=== PATIENT | male | born 1945 | race American Indian/Alaskan Native ===

== ENCOUNTER 2018-01-04 10:47 | Emergency (ER) | payer MEDICARE ==
--- NOTE | 2018-01-04 12:21 | Emergency Department Report ---
ED General Adult HPI - General Chief complaint: High BP Stated complaint: HIGH BLOOD PRESSURE Time Seen by Provider: 01/04/18 12:17 Source: EMS Mode of arrival: Stretcher Limitations: Physical Limitation - History of Present Illness Initial comments: She has a 72-year-old male that presents emergency room via EMS for high blood pressure. Patient states that his home health nurse came out and checked his blood pressure and it was high and called the ambulance. Patient denies chest pain and shortness of breath. Patient denies dizziness and headache. Patient denies any physical symptoms. Patient states he did not call the EMS ordered he wanted to come to the hospital. Patient is A& O 3. Patient is oriented to person, place, and situation. However patient is disoriented to time. Patient answers questions appropriately. MD Complaint: high blood pressure -: Sudden Improves with: none Worsens with: none Associated Symptoms: denies: confusion, chest pain, cough, diaphoresis, fever/ chills, headaches, loss of appetite, malaise, nausea/vomiting, rash, seizure, shortness of breath, syncope, weakness Treatments Prior to Arrival: none - Related Data Home Medications Medication Instructions Recorded Confirmed Last Taken Aspirin EC [Aspirin Enteric Coated 1 tab PO DAILY 01/04/18 01/04/18 Unknown TAB] AtorvaSTATin [Lipitor] 40 mg PO QHS 01/04/18 01/04/18 Unknown Cyanocobalamin (Vitamin B-12) 1,000 mcg PO DAILY 01/04/18 01/04/18 Unknown [Vitamin B-12] Docusate Sodium [Colace] 100 mg PO BID 01/04/18 01/04/18 Unknown Ferrous Sulfate [Iron] 325 mg PO DAILY 01/04/18 01/04/18 Unknown Metoprolol [Lopressor TAB] 50 mg PO BID 01/04/18 01/04/18 Unknown NIFEdipine [Nifedipine ER] 60 mg PO BID 01/04/18 01/04/18 Unknown Omeprazole 40 mg PO DAILY 01/04/18 01/04/18 Unknown Sertraline [Zoloft] 50 mg PO QHS 01/04/18 01/04/18 Unknown Tamsulosin [Flomax] 0.4 mg PO QDAY 01/04/18 01/04/18 Unknown hydrALAZINE [Apresoline] 25 mg PO TID 01/04/18 01/04/18 Unknown levETIRAcetam 750 mg PO BID 01/04/18 01/04/18 Unknown Previous Rx's Medication Instructions Recorded Last Taken Type cloNIDine [Catapres] 0.1 mg PO TID #20 tablet 01/04/18 Unknown Rx Allergies Allergy/AdvReac Type Severity Reaction Status Date / Time simvastatin Allergy Unknown Verified 01/04/18 13:15 ED Review of Systems ROS: Stated complaint: HIGH BLOOD PRESSURE Other details as noted in HPI Comment: All other systems reviewed and negative Constitutional: denies: chills, fever Eyes: denies: eye pain, eye discharge, vision change ENT: denies: ear pain, throat pain Respiratory: denies: cough, shortness of breath, wheezing Cardiovascular: denies: chest pain, palpitations Endocrine: no symptoms reported Gastrointestinal: denies: abdominal pain, nausea, diarrhea Genitourinary: denies: urgency, dysuria Musculoskeletal: denies: back pain, joint swelling, arthralgia Skin: denies: rash, lesions Neurological: denies: headache, weakness, paresthesias Psychiatric: denies: anxiety, depression Hematological/Lymphatic: denies: easy bleeding, easy bruising ED Past Medical Hx - Past Medical History Previous Medical History?: Yes Hx Hypertension: Yes Hx CVA: Yes (right side deficits) Hx Congestive Heart Failure: Yes Hx Renal Disease: Yes (no dialysis) Hx Seizures: Yes Hx Dementia: Yes 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 Colon cancer dx Apr 10, 2017 - Social History Smoking Status: Never Smoker Substance Use Type: None - Medications Home Medications: Home Medications Medication Instructions Recorded Confirmed Last Taken Type Aspirin EC [Aspirin Enteric Coated 1 tab PO DAILY 01/04/18 01/04/18 Unknown History TAB] AtorvaSTATin [Lipitor] 40 mg PO QHS 01/04/18 01/04/18 Unknown History Cyanocobalamin (Vitamin B-12) 1,000 mcg PO DAILY 01/04/18 01/04/18 Unknown History [Vitamin B-12] Docusate Sodium [Colace] 100 mg PO BID 01/04/18 01/04/18 Unknown History Ferrous Sulfate [Iron] 325 mg PO DAILY 01/04/18 01/04/18 Unknown History Metoprolol [Lopressor TAB] 50 mg PO BID 01/04/18 01/04/18 Unknown History NIFEdipine [Nifedipine ER] 60 mg PO BID 01/04/18 01/04/18 Unknown History Omeprazole 40 mg PO DAILY 01/04/18 01/04/18 Unknown History Sertraline [Zoloft] 50 mg PO QHS 01/04/18 01/04/18 Unknown History Tamsulosin [Flomax] 0.4 mg PO QDAY 01/04/18 01/04/18 Unknown History cloNIDine [Catapres] 0.1 mg PO TID #20 tablet 01/04/18 Unknown Rx hydrALAZINE [Apresoline] 25 mg PO TID 01/04/18 01/04/18 Unknown History levETIRAcetam 750 mg PO BID 01/04/18 01/04/18 Unknown History ED Physical Exam - General Limitations: Physical Limitation General appearance: alert, in no apparent distress - Head Head exam: Present: atraumatic, normocephalic - Eye Eye exam: Present: normal appearance - ENT ENT exam: Present: mucous membranes moist - Neck Neck exam: Present: normal inspection - Respiratory Respiratory exam: Present: normal lung sounds bilaterally. Absent: respiratory distress - Cardiovascular Cardiovascular Exam: Present: regular rate, normal rhythm. Absent: systolic murmur, diastolic murmur, rubs, gallop - GI/Abdominal GI/Abdominal exam: Present: soft, normal bowel sounds - Rectal Rectal exam: Present: deferred - Extremities Exam Extremities exam: Present: normal inspection - Back Exam Back exam: Present: normal inspection - Neurological Exam Neurological exam: Present: alert, oriented X3 - Psychiatric Psychiatric exam: Present: normal affect, normal mood - Skin Skin exam: Present: warm, dry, intact, normal color. Absent: rash ED Course Vital Signs 01/04/18 01/04/18 01/04/18 11:39 13:00 14:00 Temperature 98.2 F Pulse Rate 51 L 46 L 56 L Respiratory 12 12 13 Rate Blood Pressure 188/94 191/88 190/82 Blood Pressure 177/83 [Left] O2 Sat by Pulse 100 99 100 Oximetry 01/04/18 01/04/18 14:30 15:03 Temperature Pulse Rate 59 L 77 Respiratory 15 12 Rate Blood Pressure Blood Pressure 175/64 158/71 [Left] O2 Sat by Pulse 98 100 Oximetry - Reevaluation(s) Reevaluation #1: All results discussed with patient. Patient agrees with plan of care to be discharged home. Patient is stable for discharge. Patient states he could see his primary care this week. . 01/04/18 13:44 Reevaluation #2: Blood pressure monitor and improved on its own. Will send patient home to follow-up with his primary care. Patient is stable for discharge. Patient instructed to monitor his blood pressure at home. We'll have patient increase his clonidine to 0.1 mg 3 times a day from 0.05 mg 3 times a day 01/04/18 15:02 Reevaluation #3: Discussed case with patient and patient's daughter at bedside. Patient's baseline creatinine is 2.4... Discharge and medication instructions given to patient's daughter and patient. Patient is to return to personal correction and follow up with primary care. 01/04/18 15:30 ED Medical Decision Making - Lab Data Result diagrams: 01/04/18 12:25 01/04/18 12:25 - EKG Data -: EKG Interpreted by Me EKG shows normal: sinus rhythm, axis, intervals, QRS complexes, ST-T waves Rate: bradycardia - EKG Data Interpretation: no acute changes, LVH - Medical Decision Making Patient is 72-year-old male that presents emergency room with elevated blood pressure. Will increase patient's home clonidine and have patient follow up with his primary care. Patient is stable for discharge - Differential Diagnosis hbp. missed med. noncompliance. Critical care attestation.: If time is entered above; I have spent that time in minutes in the direct care of this critically ill patient, excluding procedure time. ED Disposition Clinical Impression: Hypertension Qualifiers: Hypertension type: essential hypertension Qualified Code(s): I10 - Essential ( primary) hypertension Chronic kidney disease Qualifiers: Chronic kidney disease stage: unspecified stage Qualified Code(s): N18.9 - Chronic kidney disease, unspecified Disposition: DC-01 TO HOME OR SELFCARE Is pt being admited?: No Does the pt Need Aspirin: No Condition: Stable Instructions: Hypertension (ED) Additional Instructions: Patient to follow up with primary care in 3-5 days. Patient to follow up with [employer] senior sergeant in 2-4 days. Patient to return to ER if condition worsens. Patient to rest. Patient to increase water. Patient to start a low salt diet. Prescriptions: cloNIDine [Catapres] 0.1 mg PO TID #20 tablet Referrals: PRIMARY CARE, [Primary Care Provider] - 3-5 Days Time of Disposition: 15:31
[2018-01-04 12:46] LABS: Hematocrit 39.9 % (35.5-45.6); Hemoglobin 13.1 gm/dl (11.8-15.2); Mean Corpuscular HGB Conc 33 % (32-34); Mean Corpuscular Hemoglobin 27 pg (28-32); Mean Corpuscular Volume 83 fl (84-94); Platelet Count 180 K/mm3 (140-440); Red Cell Distribution Width 18.9 % (13.2-15.2)
[2018-01-04 12:58] LABS: Albumin 3.7 g/dL (3.9-5); Calcium 8.7 mg/dL (8.4-10.2)
[2018-01-04] MEDS ORDERED: CATAPRES PO ONE (13:43)
[2018-01-04 15:03] VITALS: BP 158/71
== END 2018-01-04 16:08 | disposition home or self-care (01) ==
LOC: ED 10:47
DX: I12.9 Hypertensive chronic kidney disease with stage 1 through stage 4 chronic kidney disease, or unspecified chronic kidney disease (principal); N18.9 Chronic kidney disease, unspecified; F03.90 Unspecified dementia, unspecified severity, without behavioral disturbance, psychotic disturbance, mood disturbance, and anxiety; I50.9 Heart failure, unspecified; Z85.038 Personal history of other malignant neoplasm of large intestine; Z79.82 Long term (current) use of aspirin; Z86.73 Personal history of transient ischemic attack (TIA), and cerebral infarction without residual deficits; Z88.8 Allergy status to other drugs, medicaments and biological substances
CPT/HCPCS: 36415; 80053; 85027; 93005; 93010; 99284

== ENCOUNTER 2019-08-02 13:06 | Inpatient (IN) | payer MEDICARE ==
[2019-08-02] MEDS ORDERED: ACETAMINOPHEN 500 MG TAB PO ONE (14:26)
--- NOTE | 2019-08-02 14:29 | Emergency Department Report ---
HPI - General Chief Complaint: Altered Mental Status Time Seen by Provider: 08/02/19 14:15 - HPI HPI: Room 5 The patient is a 73-year-old male presenting with chief complaint of altered mental status. The patient is a history of dementia as a poor story in. Patient denies complaints including pain, shortness breath nausea vomiting or cough. I spoke with the patient's rn urgent care ([phone]) who states that the personal snf sent the patient to the ED secondary to drooling, facial drooping and decreased appetite over the past 4 days. The caregiver states this is all abnormal for him. 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 Colon cancer dx Apr 10, 2017 - Family History Family history: no significant - Social History Smoking Status: Never Smoker Substance Use Type: None - Medications Home Medications: Home Medications Medication Instructions Recorded Confirmed Last Taken Type Aspirin EC [Halfprin EC] 1 tab PO DAILY 01/04/18 01/04/18 Unknown History AtorvaSTATin [Lipitor] 40 mg PO QHS 01/04/18 01/04/18 Unknown History Cyanocobalamin (Vitamin B-12) 1,000 mcg PO DAILY 01/04/18 01/04/18 Unknown History [Vitamin B-12] Docusate Sodium [Colace] 100 mg PO BID 01/04/18 01/04/18 Unknown History Ferrous Sulfate [Iron] 325 mg PO DAILY 01/04/18 01/04/18 Unknown History Metoprolol [Lopressor TAB] 50 mg PO BID 01/04/18 01/04/18 Unknown History NIFEdipine [Nifedipine ER] 60 mg PO BID 01/04/18 01/04/18 Unknown History Omeprazole 40 mg PO DAILY 01/04/18 01/04/18 Unknown History Sertraline [Zoloft] 50 mg PO QHS 01/04/18 01/04/18 Unknown History Tamsulosin [Flomax] 0.4 mg PO QDAY 01/04/18 01/04/18 Unknown History cloNIDine [Catapres] 0.1 mg PO TID #20 tablet 01/04/18 Unknown Rx hydrALAZINE [Apresoline] 25 mg PO TID 01/04/18 01/04/18 Unknown History levETIRAcetam 750 mg PO BID 01/04/18 01/04/18 Unknown History ED Review of Systems ROS: Stated complaint: ALTERED MENTAL STATUS Other details as noted in HPI Constitutional: no symptoms reported Eyes: denies: eye pain ENT: denies: throat pain Respiratory: denies: shortness of breath Cardiovascular: denies: chest pain Endocrine: no symptoms reported Gastrointestinal: denies: abdominal pain Genitourinary: denies: dysuria Musculoskeletal: denies: back pain Neurological: denies: headache Physical Exam - Physical Exam Vital Signs: Vital Signs 08/02/19 14:05 Temperature 101.1 F H Pulse Rate 88 Respiratory 16 Rate Blood Pressure 137/85 O2 Sat by Pulse 95 Oximetry Physical Exam: GENERAL: The patient is well-developed well-nourished male sitting on stretcher not appearing to be in acute distress. [] HEENT: Normocephalic. Atraumatic. Extraocular motions are intact. Patient has moist mucous membranes. NECK: Supple. Trachea midline CHEST/LUNGS: Clear to auscultation. There is no respiratory distress noted. HEART/CARDIOVASCULAR: Regular. There is no tachycardia. There is no gallop rub or murmur. ABDOMEN: Abdomen is soft, nontender. Patient has normal bowel sounds. There is no abdominal distention. SKIN: There is no rash. There is no edema. There is no diaphoresis. NEURO: The patient is awake and alert. The patient is cooperative. The patient has residual right-sided weakness from previous CVA. Cranial nerves II through XII grossly intact except cranial nerve #11 on the right. The patient has normal speech MUSCULOSKELETAL: There is no evidence of acute injury. ED Course Vital Signs 08/02/19 14:05 Temperature 101.1 F H Pulse Rate 88 Respiratory 16 Rate Blood Pressure 137/85 O2 Sat by Pulse 95 Oximetry ED Medical Decision Making - Lab Data Result diagrams: 08/02/19 14:38 08/02/19 14:38 Laboratory Tests 08/02/19 08/02/19 08/02/19 14:38 14:38 14:38 WBC 9.7 RBC 6.21 H Hgb 17.6 H Hct 53.1 H MCV 86 MCH 28 MCHC 33 RDW 15.9 H Plt Count 223 Lymph % (Auto) 11.8 L [place] % (Auto) 7.9 H Eos % (Auto) 0.3 Baso % (Auto) 0.2 Lymph # 1.1 L [place] # 0.8 Eos # 0.0 Baso # 0.0 Seg Neutrophils % 79.8 H Seg Neutrophils # 7.7 PT 15.4 H INR 1.20 H APTT 30.2 Sodium 156 H Potassium 3.2 L Chloride 113.9 H Carbon Dioxide 19 L Anion Gap 26 BUN 54 H Creatinine 5.3 H Estimated GFR 13 BUN/Creatinine Ratio 10 Glucose 123 H Calcium 9.2 Troponin T 0.066 H Triglycerides 115 Cholesterol 129 LDL Cholesterol Direct 74 HDL Cholesterol 41 Cholesterol/HDL Ratio 3.14 Urine Color Urine Turbidity Urine pH Ur Specific [place] Urine Protein Urine Glucose (UA) Urine Ketones Urine Blood Urine Nitrite Urine Bilirubin Urine Urobilinogen Ur Leukocyte Esterase Urine WBC (Auto) Urine RBC (Auto) U Epithel Cells (Auto) Urine Bacteria (Auto) Urine Mucus 08/02/19 Unknown WBC RBC Hgb Hct MCV MCH MCHC RDW Plt Count Lymph % (Auto) [place] % (Auto) Eos % (Auto) Baso % (Auto) Lymph # [place] # Eos # Baso # Seg Neutrophils % Seg Neutrophils # PT INR APTT Sodium Potassium Chloride Carbon Dioxide Anion Gap BUN Creatinine Estimated GFR BUN/Creatinine Ratio Glucose Calcium Troponin T Triglycerides Cholesterol LDL Cholesterol Direct HDL Cholesterol Cholesterol/HDL Ratio Urine Color Yellow Urine Turbidity Clear Urine pH 5.0 Ur Specific [place] 1.014 Urine Protein 30 mg/dl Urine Glucose (UA) Neg Urine Ketones Neg Urine Blood Sm Urine Nitrite Neg Urine Bilirubin Neg Urine Urobilinogen < 2.0 Ur Leukocyte Esterase Neg Urine WBC (Auto) 2.0 Urine RBC (Auto) 1.0 U Epithel Cells (Auto) < 1.0 Urine Bacteria (Auto) 1+ Urine Mucus Few - EKG Data -: EKG Interpreted by [place] EKG shows normal: sinus rhythm Rate: normal - EKG Data When compared to previous EKG there are: previous EKG unavailable Interpretation: other (no ischemic changes seen) - Radiology Data Radiology results: report reviewed (CT head, chest x-ray), image reviewed (CT head, chest x-ray) interpreted by me: Chest x-ray-no focal infiltrates, no pneumothorax [facility] [address] [place] [address] Cat Scan Report Signed Patient: GWYN VERGARA MR#: [id number] : 1945 Acct:[id number] Age/Sex: 73 / M ADM Date: 08/02/19 Loc: ED Attending Dr: Ordering Physician: BRIANNA ASHTON MD Date of Service: 08/02/19 Procedure(s): CT head/brain wo con Accession Number(s): [id number] cc: BRIANNA ASHTON MD CT head/brain wo con INDICATION / CLINICAL INFORMATION: 73 years Male; altered mental status. TECHNIQUE: Routine CT head without contrast. All CT scans at this location are performed using CT dose reduction for ALARA by means of automated exposure control. COMPARISON: None. FINDINGS: BRAIN / INTRACRANIAL CONTENTS: There is encephalomalacia along the medial left frontal lobe and distribution of the left EEZ compatible with old infarct at. There is also old infarct adjacent to the right frontal horn. There is associated mild ex vacuo dilatation of the anterior lateral ventricles, greater on the left. There otherwise appears to be mild cerebral white matter disease most consistent with microvascular angiopathy at. There is no clear CT evidence of acute intracranial hemorrhage or significant mass effect. ORBITS: No significant abnormality of visualized orbits. SINUSES / MASTOIDS: There are small retention cysts within the visualized right maxillary sinus at. CRANIOCERVICAL JUNCTION: No significant abnormality. ADDITIONAL FINDINGS: There is a focus of calcification within the left parietal scalp near the vertex. Additionally, this will corticated can cavity of the adjacent left parietal calvarium which is nonaggressive in appearance given the fairly smooth margins at. Findings may reflect developmental anomaly with vascular component. IMPRESSION: 1. There is an old left EEZ infarct with encephalomalacia. 2. There is also an old infarct along the anterior right basal ganglia. There is no CT evidence of acute intracranial hemorrhage. Signer Name: Quincy rUena MD Signed: 08/02/2019 3:47 PM Workstation Name: [id number] Transcribed By: MR Dictated By: Quincy Urena MD Electronically Authenticated By: Quincy Urena MD Signed Date/Time: 08/02/191546 DD/ 154 TD/TT: [facility] [address] [place] [address] XRay Report Signed Patient: GWYN VERGARA MR#: [id number] : 1945 Acct:[id number] Age/Sex: 73 / M ADM Date: 08/02/19 Loc: ED Attending Dr: Ordering Physician: BRIANNA ASHTON MD Date of Service: 08/02/19 Procedure(s): XR chest 1V ap Accession Number(s): [id number] cc: BRIANNA ASHTON MD Fluoro Time In Minutes: CHEST 1 VIEW INDICATION / CLINICAL INFORMATION: fever. COMPARISON: None available. FINDINGS: SUPPORT DEVICES: None. HEART / MEDIASTINUM: No significant abnormality. LUNGS / PLEURA: No significant pulmonary or pleural abnormality.. No pneumothorax. ADDITIONAL FINDINGS: No significant additional findings. IMPRESSION: 1. No acute findings. Signer Name: Bennie Shrestha MD Signed: 08/02/2019 3:37 PM Workstation Name: [id number] Transcribed By: Dictated By: Bennie Shrestha MD Electronically Authenticated By: Bennie Shrestha MD Signed Date/Time: 08/02/191536 DD/ 36 TD/TT: - Differential Diagnosis UTI, pneumonia, CVA, AMS Critical care attestation.: If time is entered above; I have spent that time in minutes in the direct care of this critically ill patient, excluding procedure time. ED Disposition Clinical Impression: Altered mental status Disposition: DC-09 OP ADMIT IP TO THIS HOSP Is pt being admited?: Yes Does the pt Need Aspirin: Yes Condition: Fair Time of Disposition: 19:26 (hospitalist paged (Dr Monteiro))
[2019-08-02 15:12] LABS: Basophils % (Auto) 0.2 % (0.0-1.8); Eosinophils % (Auto) 0.3 % (0.0-4.3); Hematocrit 53.1 % (35.5-45.6); Hemoglobin 17.6 gm/dl (11.8-15.2); Lymphocytes # (Auto) 1.1 K/mm3 (1.2-5.4); Lymphocytes % (Auto) 11.8 % (13.4-35.0); Mean Corpuscular HGB Conc 33 % (32-34); Mean Corpuscular Volume 86 fl (84-94); Monocytes # (Auto) 0.8 K/mm3 (0.0-0.8); Monocytes % (Auto) 7.9 % (0.0-7.3); Platelet Count 223 K/mm3 (140-440); Red Blood Count 6.21 M/mm3 (3.65-5.03); Red Cell Distribution Width 15.9 % (13.2-15.2)
[2019-08-02 15:28] LABS: INR 1.2 (0.87-1.13)
[2019-08-02 15:29] LABS: Partial Thromboplastin Time 30.2 Sec. (24.2-36.6)
[2019-08-02 15:35] LABS: Calcium 9.2 mg/dL (8.4-10.2)
--- NOTE | 2019-08-02 15:42 | XRay Report ---
CHEST 1 VIEW INDICATION / CLINICAL INFORMATION: fever. COMPARISON: None available. FINDINGS: SUPPORT DEVICES: None. HEART / MEDIASTINUM: No significant abnormality. LUNGS / PLEURA: No significant pulmonary or pleural abnormality.. No pneumothorax. ADDITIONAL FINDINGS: No significant additional findings. IMPRESSION: 1. No acute findings. Signer Name: Bennie Shrestha MD Signed: 08/02/2019 3:37 PM Workstation Name: [id number]
--- NOTE | 2019-08-02 15:52 | Cat Scan Report ---
CT head/brain wo con INDICATION / CLINICAL INFORMATION: 73 years Male; altered mental status. TECHNIQUE: Routine CT head without contrast. All CT scans at this location are performed using CT dos e reduction for ALARA by means of automated exposure control. COMPARISON: None. FINDINGS: BRAIN / INTRACRANIAL CONTENTS: There is encephalomalacia along the medial left frontal lobe and distr ibution of the left EZE compatible with old infarct at. There is also old infarct adjacent to the rig ht frontal horn. There is associated mild ex vacuo dilatation of the anterior lateral ventricles, gre ater on the left. There otherwise appears to be mild cerebral white matter disease most consistent with microvascular a ngiopathy at. There is no clear CT evidence of acute intracranial hemorrhage or significant mass effe ct. ORBITS: No significant abnormality of visualized orbits. SINUSES / MASTOIDS: There are small retention cysts within the visualized right maxillary sinus at. CRANIOCERVICAL JUNCTION: No significant abnormality. ADDITIONAL FINDINGS: There is a focus of calcification within the left parietal scalp near the vertex . Additionally, this will corticated can cavity of the adjacent left parietal calvarium which is anil ggressive in appearance given the fairly smooth margins at. Findings may reflect developmental anomal y with vascular component. IMPRESSION: 1. There is an old left EZE infarct with encephalomalacia. 2. There is also an old infarct along the anterior right basal ganglia. There is no CT evidence of ac chepe intracranial hemorrhage. Signer Name: Quincy Urena MD Signed: 08/02/2019 3:47 PM Workstation Name: [id number]
[2019-08-02 16:15] LABS: Chol/HDL Ratio 3.14 %
[2019-08-02] MEDS ORDERED: SODIUM CHLORIDE 0.9% 1000 ML 1,000 ML IV ONE ×2 (16:30→22:02)
[2019-08-02 19:07] LABS: Bacteria,Urine 1+ /HPF (Negative); Bilirubin,Urine NEG (Negative); Blood,Urine SM (Negative); Color,Urine Yellow (Yellow); Mucus,Urine FEW /HPF; Urobilinogen,Urine < 2.0 mg/dL (<2.0)
[2019-08-02] MEDS ORDERED: ASPIRIN 325 MG TAB PO ONE (19:27)
[2019-08-02] MEDS ORDERED: PIPERACIL/TAZOBACTA 4.5/NS 100 4.5 GM/100 ML VIAL IV ONE (19:27)
--- NOTE | 2019-08-02 22:59 | History and Physical Report ---
History of Present Illness Date of admission: 08/02/19 22:00 History of present illness: 73-year-old male with a history of hypertension, dementia, colon cancer, chronic kidney disease, CVA, gout, hyperlipidemia, seizure, GERD, anxiety was sent from the personal correction for evaluation of decreased appetite, lethargy and altered mental status. The note on the chart state that he has been drooling for 2 days. The patient is unable to give a history. His labs significant for hypernatremia, kidney failure with unknown baseline renal function and abnormal cardiac enzymes. A review of system is unobtainable PAST MEDICAL HISTORY:hypertension, hyperlipidemia, dementia, colon cancer, chronic kidney disease, CVA, gout, seizure, GERD, anxiety PAST SURGICAL HISTORY: part of the colon removed SOCIAL HISTORY: no tobacco , no alcohol or drugs FAMILY HISTORY: hypertension Medications and Allergies Allergies Allergy/AdvReac Type Severity Reaction Status Date / Time simvastatin Allergy Unknown Verified 01/04/18 13:15 Home Medications Medication Instructions Recorded Confirmed Last Taken Type Aspirin EC [Halfprin EC] 1 tab PO DAILY 01/04/18 01/04/18 Unknown History AtorvaSTATin [Lipitor] 40 mg PO QHS 01/04/18 01/04/18 Unknown History Cyanocobalamin (Vitamin B-12) 1,000 mcg PO DAILY 01/04/18 01/04/18 Unknown History [Vitamin B-12] Docusate Sodium [Colace] 100 mg PO BID 01/04/18 01/04/18 Unknown History Ferrous Sulfate [Iron] 325 mg PO DAILY 01/04/18 01/04/18 Unknown History Metoprolol [Lopressor TAB] 50 mg PO BID 01/04/18 01/04/18 Unknown History NIFEdipine [Nifedipine ER] 60 mg PO BID 01/04/18 01/04/18 Unknown History Omeprazole 40 mg PO DAILY 01/04/18 01/04/18 Unknown History Sertraline [Zoloft] 50 mg PO QHS 01/04/18 01/04/18 Unknown History Tamsulosin [Flomax] 0.4 mg PO QDAY 01/04/18 01/04/18 Unknown History cloNIDine [Catapres] 0.1 mg PO TID #20 tablet 01/04/18 Unknown Rx hydrALAZINE [Apresoline] 25 mg PO TID 01/04/18 01/04/18 Unknown History levETIRAcetam 750 mg PO BID 01/04/18 01/04/18 Unknown History Active Meds: Active Medications Enoxaparin Sodium (Enoxaparin) 30 mg SUB-Q QDAY [facility] Dextrose/Sodium Chloride (D5/0.45ns) 1,000 mls @ 75 mls/hr IV DIRECT [facility] Exam - Physical Exam Narrative exam: Gen. appearance: Patient lying in bed, no apparent distress HEENT: Normocephalic, atraumatic, pupils equally round and reactive to light, extraocular movement intact, and no sclericterus,. No JVD or thyromegaly or nodule,neck supple, no carotid bruit ,mucous membranes dry, no exudate or erythema Heart: S1, S2, regular rate and rhythm Lungs: Clear to auscultation bilaterally, breathing comfortable Abdomen: Positive bowel sounds, nontender, nondistended, no organomegaly Extremity: No edema, cyanosis, clubbing Skin: No rash, nodules, warm, dry Neuro: Oriented 3, cranial nerves II-12 intact, speech is fluent - Constitutional Vitals: Temp Pulse Resp BP Pulse Ox 98.5 F 63 22 174/88 95 08/02/19 19:30 08/02/19 22:30 08/02/19 22:30 08/02/19 22:30 08/02/19 19:30 Results - Labs CBC & Chem 7: 08/02/19 14:38 08/02/19 14:38 Labs: Abnormal lab results 08/02/19 08/02/19 08/02/19 Range/Units 14:38 14:38 14:38 RBC 6.21 H (3.65-5.03) M/mm3 Hgb 17.6 H (11.8-15.2) gm/dl Hct 53.1 H (35.5-45.6) % RDW 15.9 H (13.2-15.2) % Lymph % (Auto) 11.8 L (13.4-35.0) % [place] % (Auto) 7.9 H (0.0-7.3) % Lymph # 1.1 L (1.2-5.4) K/mm3 Seg Neutrophils % 79.8 H (40.0-70.0) % PT 15.4 H (12.2-14.9) Sec. INR 1.20 H (0.87-1.13) Sodium 156 H (137-145) mmol/L Potassium 3.2 L (3.6-5.0) mmol/L Chloride 113.9 H (98-107) mmol/L Carbon Dioxide 19 L (22-30) mmol/L BUN 54 H (9-20) mg/dL Creatinine 5.3 H (0.8-1.5) mg/dL Glucose 123 H (75-100) mg/dL Troponin T 0.066 H (0.00-0.029) ng/mL - Imaging and Cardiology Chest x-ray: report reviewed CT Scan - head: report reviewed Assessment and Plan Assessment Hypernatremia/renal failure Start IV fluid, monitor potassium level Consult renal, check serial chemistry Abnormal cardiac enzymes Check cardiac enzymes, echo Hypokalemia, replete potassium Gout/seizure Start outpatient medications History of colon cancer stable DVT prophylaxis
[2019-08-02] MEDS ORDERED: POTASSIUM CHLORIDE ER 20 MEQ TAB PO ONE (23:01)
[2019-08-03] MEDS: D5W/0.45% NACL 1,000 ML IV SCH (00:17)
[2019-08-03] MEDS ORDERED: hydrALAZINE 20 MG/1 ML INJ IV ONE (01:39)
[2019-08-03 02:03] LABS: Creatine Kinase MB 8.6 ng/mL (0.0-4.0)
[2019-08-03] MEDS: hydrALAZINE 20 MG/1 ML INJ IV PRN ×2 (07:01→18:55)
[2019-08-03] MEDS: ENOXAPARIN 30 MG/0.3 ML INJ SUB-Q SCH (09:28)
[2019-08-03] MEDS ORDERED: NON-FORMULARY EACH (Levetiracetam 750 MG) PO SCH (10:00)
[2019-08-03] MEDS: FERROUS SULFATE 325 MG TAB PO SCH (11:02)
[2019-08-03] MEDS: DOCUSATE SODIUM 100 MG CAP PO SCH ×2 (11:02→22:42)
[2019-08-03] MEDS: CYANOCOBALAMIN (VIT B-12) 1000 MCG TAB PO SCH (11:03)
[2019-08-03] MEDS: METOPROLOL TARTRATE 50 MG TAB PO SCH ×2 (11:03→22:43)
--- NOTE | 2019-08-03 12:00 | Progress Note ---
Assessment and Plan Assessment and plan: --Hypernatremia; D5W, plenty of oral fluids, closely monitor electrolytes --Acute versus acute on chronic kidney disease; Closely monitor renal function avoid nephrotoxins Nephrology consultation requested --Elevated troponins; Nonspecific probably secondary to chronic kidney disease However patient has risk factors, consider cardiology evaluation if needed --Hyperkalemia; replenished per protocol and monitor levels --History of seizures; seizure precautions Antiseizure medications, supportive care --History of gout; Resume home medications --History of colon cancer; stable Patient follows up with his physicians upon discharge --DVT prophylaxis; on heparin Monitor closely and adjust the management as needed History Interval history: Patient seen and examined medical records reviewed Patient feels slightly better Denies chest pain or shortness of breath Vital signs reviewed Hospitalist Physical - Constitutional Vitals: Temp Pulse Resp BP Pulse Ox 97.9 F 74 18 185/94 95 08/03/19 08:44 08/03/19 08:44 08/03/19 08:44 08/03/19 11:03 08/03/19 08:44 General appearance: Present: no acute distress, well-nourished - EENT Eyes: Present: PERRL, EOM intact - Neck Neck: Present: supple, normal ROM - Respiratory Respiratory effort: normal Respiratory: bilateral: diminished, negative: rales, rhonchi, wheezing - Cardiovascular Rhythm: regular Heart Sounds: Present: S1 & S2 - Extremities Extremities: no ischemia, No edema - Abdominal General gastrointestinal: soft, non-tender, non-distended, normal bowel sounds - Integumentary Integumentary: Present: clear, warm - Psychiatric Psychiatric: appropriate mood/affect, cooperative - Neurologic Neurologic: moves all extremities Results - Labs CBC & Chem 7: 08/02/19 14:38 08/02/19 14:38 Labs: Laboratory Last Values WBC 9.7 K/mm3 (4.5-11.0) 08/02/19 14:38 RBC 6.21 M/mm3 (3.65-5.03) H 08/02/19 14:38 Hgb 17.6 gm/dl (11.8-15.2) H 08/02/19 14:38 Hct 53.1 % (35.5-45.6) H 08/02/19 14:38 MCV 86 fl (84-94) 08/02/19 14:38 MCH 28 pg (28-32) 08/02/19 14:38 MCHC 33 % (32-34) 08/02/19 14:38 RDW 15.9 % (13.2-15.2) H 08/02/19 14:38 Plt Count 223 K/mm3 (140-440) 08/02/19 14:38 Lymph % (Auto) 11.8 % (13.4-35.0) L 08/02/19 14:38 [place] % (Auto) 7.9 % (0.0-7.3) H 08/02/19 14:38 Eos % (Auto) 0.3 % (0.0-4.3) 08/02/19 14:38 Baso % (Auto) 0.2 % (0.0-1.8) 08/02/19 14:38 Lymph # 1.1 K/mm3 (1.2-5.4) L 08/02/19 14:38 [place] # 0.8 K/mm3 (0.0-0.8) 08/02/19 14:38 Eos # 0.0 K/mm3 (0.0-0.4) 08/02/19 14:38 Baso # 0.0 K/mm3 (0.0-0.1) 08/02/19 14:38 Seg Neutrophils % 79.8 % (40.0-70.0) H 08/02/19 14:38 Seg Neutrophils # 7.7 K/mm3 (1.8-7.7) 08/02/19 14:38 PT 15.4 Sec. (12.2-14.9) H 08/02/19 14:38 INR 1.20 (0.87-1.13) H 08/02/19 14:38 APTT 30.2 Sec. (24.2-36.6) 08/02/19 14:38 Sodium 156 mmol/L (137-145) H 08/02/19 14:38 Potassium 3.2 mmol/L (3.6-5.0) L 08/02/19 14:38 Chloride 113.9 mmol/L (98-107) H 08/02/19 14:38 Carbon Dioxide 19 mmol/L (22-30) L 08/02/19 14:38 Anion Gap 26 mmol/L 08/02/19 14:38 BUN 54 mg/dL (9-20) H 08/02/19 14:38 Creatinine 5.3 mg/dL (0.8-1.5) H 08/02/19 14:38 Estimated GFR 13 ml/min 08/02/19 14:38 BUN/Creatinine Ratio 10 % 08/02/19 14:38 Glucose 123 mg/dL (75-100) H 08/02/19 14:38 Calcium 9.2 mg/dL (8.4-10.2) 08/02/19 14:38 Total Creatine Kinase 551 units/L (55-170) H 08/03/19 01:20 CK-MB (CK-2) 8.6 ng/mL (0.0-4.0) H 08/03/19 01:20 CK-MB (CK-2) Rel Index 1.5 (0-4) 08/03/19 01:20 Troponin T 0.052 ng/mL (0.00-0.029) H D 08/03/19 01:20 Triglycerides 115 mg/dL (2-149) 08/02/19 14:38 Cholesterol 129 mg/dL (50-199) 08/02/19 14:38 LDL Cholesterol Direct 74 mg/dL (50-130) 08/02/19 14:38 HDL Cholesterol 41 mg/dL (40-59) 08/02/19 14:38 Cholesterol/HDL Ratio 3.14 % 08/02/19 14:38 Urine Color Yellow (Yellow) 08/02/19 Unknown Urine Turbidity Clear (Clear) 08/02/19 Unknown Urine pH 5.0 (5.0-7.0) 08/02/19 Unknown Ur Specific [place] 1.014 (1.003-1.030) 08/02/19 Unknown Urine Protein 30 mg/dl mg/dL (Negative) 08/02/19 Unknown Urine Glucose (UA) Neg mg/dL (Negative) 08/02/19 Unknown Urine Ketones Neg mg/dL (Negative) 08/02/19 Unknown Urine Blood Sm (Negative) 08/02/19 Unknown Urine Nitrite Neg (Negative) 08/02/19 Unknown Urine Bilirubin Neg (Negative) 08/02/19 Unknown Urine Urobilinogen < 2.0 mg/dL (<2.0) 08/02/19 Unknown Ur Leukocyte Esterase Neg (Negative) 08/02/19 Unknown Urine WBC (Auto) 2.0 /HPF (0.0-6.0) 08/02/19 Unknown Urine RBC (Auto) 1.0 /HPF (0.0-6.0) 08/02/19 Unknown U Epithel Cells (Auto) < 1.0 /HPF (0-13.0) 08/02/19 Unknown Urine Bacteria (Auto) 1+ /HPF (Negative) 08/02/19 Unknown Urine Mucus Few /HPF 08/02/19 Unknown Active Medications - Current Medications Current Medications: Generic Name Dose Route Start Last Admin Trade Name Freq PRN Reason Stop Dose Admin Aspirin 81 mg 08/03/19 11:00 Halfprin Ec PO DAILY [facility] Clonidine HCl 0.1 mg 08/03/19 14:00 Catapres PO TID [facility] Cyanocobalamin 1,000 mcg 08/03/19 11:00 08/03/19 11:03 Vitamin B-12 PO 1,000 mcg DAILY [facility] Administration Docusate Sodium 100 mg 08/03/19 10:00 08/03/19 11:02 Colace PO 100 mg BID [facility] Administration Enoxaparin Sodium 30 mg 08/03/19 10:00 08/03/19 09:28 Enoxaparin SUB-Q 30 mg QDAY [facility] Administration Ferrous Sulfate 325 mg 08/03/19 11:00 08/03/19 11:02 Feosol PO 325 mg DAILY [facility] Administration Hydralazine HCl 5 mg 08/03/19 01:07 08/03/19 07:01 Apresoline IV 5 mg Q6H PRN Administration Hypertension Hydralazine HCl 25 mg 08/03/19 14:00 Apresoline PO TID [facility] Dextrose/Sodium Chloride 1,000 mls @ 75 mls/hr 08/02/19 23:00 08/03/19 00:17 D5/0.45ns IV 75 mls/hr DIRECT [facility] Administration Levetiracetam 750 mg 08/03/19 11:20 Keppra PO BID [facility] Metoprolol Tartrate 50 mg 08/03/19 10:00 08/03/19 11:03 Metoprolol PO 50 mg BID [facility] Administration Nifedipine 60 mg 08/03/19 10:00 Procardia Xl PO BID [facility] Sertraline HCl 50 mg 08/03/19 22:00 Zoloft PO QHS [facility] Tamsulosin HCl 0.4 mg 08/03/19 10:00 Flomax PO QDAY [facility]
--- NOTE | 2019-08-03 13:26 | Consultation ---
History of Present Illness Consult date: 08/03/19 Requesting physician: RADHA DOWNING Consult reason: abnormal cardiac enzymes History of present illness: Pt is 73 y.o. AA male, skilled care facility resident with past medical history of HTN, past CVA with residual right-sided weakness, renal insufficiency, seizure disorder, colon cancer, and dementia. He is previously unknown to our practice. Pt is confused upon evaluation, and thus HPI is primarily obtained per chart. was sent from the personal custodial for evaluation of decreased appetite, lethargy and altered mental status. The note on the chart state that he has been drooling for 2 days. Upon evaluation, pt is oriented to self and denies any complaints. Cardiology has been consulted for minimal troponin elevation. Past History Past Medical History: cancer (colon), GERD, hypertension, hyperlipidemia, renal failure, seizures, stroke Medications and Allergies Allergies Allergy/AdvReac Type Severity Reaction Status Date / Time simvastatin Allergy Unknown Verified 01/04/18 13:15 Home Medications Medication Instructions Recorded Confirmed Last Taken Type Aspirin EC [Halfprin EC] 1 tab PO DAILY 01/04/18 01/04/18 Unknown History AtorvaSTATin [Lipitor] 40 mg PO QHS 01/04/18 01/04/18 Unknown History Cyanocobalamin (Vitamin B-12) 1,000 mcg PO DAILY 01/04/18 01/04/18 Unknown History [Vitamin B-12] Docusate Sodium [Colace] 100 mg PO BID 01/04/18 01/04/18 Unknown History Ferrous Sulfate [Iron] 325 mg PO DAILY 01/04/18 01/04/18 Unknown History Metoprolol [Lopressor TAB] 50 mg PO BID 01/04/18 01/04/18 Unknown History NIFEdipine [Nifedipine ER] 60 mg PO BID 01/04/18 01/04/18 Unknown History Omeprazole 40 mg PO DAILY 01/04/18 01/04/18 Unknown History Sertraline [Zoloft] 50 mg PO QHS 01/04/18 01/04/18 Unknown History Tamsulosin [Flomax] 0.4 mg PO QDAY 01/04/18 01/04/18 Unknown History cloNIDine [Catapres] 0.1 mg PO TID #20 tablet 01/04/18 Unknown Rx hydrALAZINE [Apresoline] 25 mg PO TID 01/04/18 01/04/18 Unknown History levETIRAcetam 750 mg PO BID 01/04/18 01/04/18 Unknown History Active Meds: Active Medications Aspirin (Halfprin Ec) 81 mg PO DAILY [facility] Clonidine HCl (Catapres) 0.1 mg PO TID [facility] Cyanocobalamin (Vitamin B-12) 1,000 mcg PO DAILY [facility] Last Admin: 08/03/19 11:03 Dose: 1,000 mcg Documented by: Docusate Sodium (Colace) 100 mg PO BID [facility] Last Admin: 08/03/19 11:02 Dose: 100 mg Documented by: Enoxaparin Sodium (Enoxaparin) 30 mg SUB-Q QDAY [facility] Last Admin: 08/03/19 09:28 Dose: 30 mg Documented by: Ferrous Sulfate (Feosol) 325 mg PO DAILY [facility] Last Admin: 08/03/19 11:02 Dose: 325 mg Documented by: Hydralazine HCl (Apresoline) 5 mg IV Q6H PRN PRN Reason: Hypertension Last Admin: 08/03/19 07:01 Dose: 5 mg Documented by: Hydralazine HCl (Apresoline) 25 mg PO TID [facility] Dextrose/Sodium Chloride (D5/0.45ns) 1,000 mls @ 75 mls/hr IV DIRECT [facility] Last Admin: 08/03/19 00:17 Dose: 75 mls/hr Documented by: Levetiracetam (Keppra) 750 mg PO BID [facility] Metoprolol Tartrate (Metoprolol) 50 mg PO BID [facility] Last Admin: 08/03/19 11:03 Dose: 50 mg Documented by: Nifedipine (Procardia Xl) 60 mg PO BID [facility] Sertraline HCl (Zoloft) 50 mg PO QHS [facility] Tamsulosin HCl (Flomax) 0.4 mg PO QDAY [facility] Review of Systems ROS unobtainable: due to mental status All systems: negative (Pt denies any complaints) Physical Examination Vital Signs Temp Pulse Resp BP Pulse Ox 101.1 F H 88 16 137/85 95 08/02/19 14:05 08/02/19 14:05 08/02/19 14:05 08/02/19 14:05 08/02/19 14:05 General appearance: no acute distress HEENT: Positive: PERRL, Normocephaly Neck: Positive: neck supple, trachea midline Cardiac: Positive: Reg Rate and Rhythm, S1/S2 Lungs: Positive: clear to auscultation Neuro: Positive: Grossly Intact Abdomen: Positive: Soft. Negative: Tender Skin: Negative: Rash Musculoskeletal: No Pain Extremities: Absent: edema Results 08/02/19 14:38 08/02/19 14:38 Cardiac Enzymes 08/03/19 Range/Units 01:20 CK-MB (CK-2) 8.6 H (0.0-4.0) ng/mL Coagulation 08/02/19 Range/Units 14:38 PT 15.4 H (12.2-14.9) Sec. INR 1.20 H (0.87-1.13) APTT 30.2 (24.2-36.6) Sec. Lipids 08/02/19 Range/Units 14:38 Triglycerides 115 (2-149) mg/dL Cholesterol 129 (50-199) mg/dL HDL Cholesterol 41 (40-59) mg/dL Cholesterol/HDL Ratio 3.14 % CBC 08/02/19 Range/Units 14:38 WBC 9.7 (4.5-11.0) K/mm3 RBC 6.21 H (3.65-5.03) M/mm3 Hgb 17.6 H (11.8-15.2) gm/dl Hct 53.1 H (35.5-45.6) % Plt Count 223 (140-440) K/mm3 Lymph # 1.1 L (1.2-5.4) K/mm3 [place] # 0.8 (0.0-0.8) K/mm3 Eos # 0.0 (0.0-0.4) K/mm3 Baso # 0.0 (0.0-0.1) K/mm3 Comprehensive Metabolic Panel 08/02/19 Range/Units 14:38 Sodium 156 H (137-145) mmol/L Potassium 3.2 L (3.6-5.0) mmol/L Chloride 113.9 H (98-107) mmol/L Carbon Dioxide 19 L (22-30) mmol/L BUN 54 H (9-20) mg/dL Creatinine 5.3 H (0.8-1.5) mg/dL Glucose 123 H (75-100) mg/dL Calcium 9.2 (8.4-10.2) mg/dL - Imaging and Cardiology Echo: pending EKG: report reviewed, image reviewed EKG interpretations - Telemetry EKG Rhythm: Sinus Rhythm - EKG Sinus rhythms and dysrhythmias: sinus rhythm Chamber hypertrophy or enlargement: left ventricular hypertro Repolarization changes or abnormalities: repolarization abn secondary to ventricular hypertrophy Assessment and Plan Pt presented for evaluation of altered mental status. Head CT with no acute f indings. Pt denies any cardiac complaints. ECG with NSR and no acute ischemic changes. Minimal troponin elevation appears non-specific at this time. Continue to trend [place] and follow-up ECG in AM. Will obtain echo and optimize anti- hypertensive regimen. Can consider stress test once medically stabilized. Nephrology consultation pending. The patient has been seen in conjunction with Dr. Olson, who agrees with the assessment and plan of care. - Patient Problems (1) Altered mental status Current Visit: Yes Status: Acute (2) Elevated troponin Current Visit: Yes Status: Acute (3) Hypertension Current Visit: Yes Status: Chronic (4) Renal insufficiency Current Visit: Yes Status: Acute (5) History of CVA (cerebrovascular accident) Current Visit: Yes Status: Chronic (6) History of colon cancer Current Visit: Yes Status: Chronic (7) History of seizure Current Visit: Yes Status: Chronic (8) Dementia Current Visit: Yes Status: Chronic
[2019-08-03] MEDS: ASPIRIN EC 81 MG TAB PO SCH (14:28)
[2019-08-03] MEDS: cloNIDine 0.1 MG TAB PO SCH ×2 (14:28→20:41)
[2019-08-03] MEDS: NIFEdipine XL 60 MG TAB PO SCH ×2 (14:28→22:45)
[2019-08-03] MEDS: levETIRAcetam 500 MG TAB PO SCH ×2 (14:29→22:42)
[2019-08-03] MEDS: TAMSULOSIN 0.4 MG CAP PO SCH (14:29)
[2019-08-03] MEDS: hydrALAZINE 25 MG TAB PO SCH ×2 (14:29→20:41)
[2019-08-03 15:51] LABS: Calcium 8.9 mg/dL (8.4-10.2)
--- NOTE | 2019-08-03 18:05 | Consultation ---
History of Present Illness - Reason for Consult Consult date: 08/03/19 acute renal failure - History of Present Illness 73-year-old male with a history of hypertension, dementia, colon cancer, chronic kidney disease, CVA, gout, hyperlipidemia, seizure, GERD, anxiety who presents with concerns of lethargy and altered mental status. Patient is unable to provide any history at this time. History and information gathered from chart review Past History Past Medical History: cancer (colon), GERD, hypertension, hyperlipidemia, renal failure, seizures, stroke Medications and Allergies Allergies Allergy/AdvReac Type Severity Reaction Status Date / Time simvastatin Allergy Unknown Verified 01/04/18 13:15 Home Medications Medication Instructions Recorded Confirmed Last Taken Type Aspirin EC [Halfprin EC] 1 tab PO DAILY 01/04/18 01/04/18 Unknown History AtorvaSTATin [Lipitor] 40 mg PO QHS 01/04/18 01/04/18 Unknown History Cyanocobalamin (Vitamin B-12) 1,000 mcg PO DAILY 01/04/18 01/04/18 Unknown History [Vitamin B-12] Docusate Sodium [Colace] 100 mg PO BID 01/04/18 01/04/18 Unknown History Ferrous Sulfate [Iron] 325 mg PO DAILY 01/04/18 01/04/18 Unknown History Metoprolol [Lopressor TAB] 50 mg PO BID 01/04/18 01/04/18 Unknown History NIFEdipine [Nifedipine ER] 60 mg PO BID 01/04/18 01/04/18 Unknown History Omeprazole 40 mg PO DAILY 01/04/18 01/04/18 Unknown History Sertraline [Zoloft] 50 mg PO QHS 01/04/18 01/04/18 Unknown History Tamsulosin [Flomax] 0.4 mg PO QDAY 01/04/18 01/04/18 Unknown History cloNIDine [Catapres] 0.1 mg PO TID #20 tablet 01/04/18 Unknown Rx hydrALAZINE [Apresoline] 25 mg PO TID 01/04/18 01/04/18 Unknown History levETIRAcetam 750 mg PO BID 01/04/18 01/04/18 Unknown History Active Meds: Active Medications Aspirin (Halfprin Ec) 81 mg PO DAILY [facility] Last Admin: 08/03/19 14:28 Dose: 81 mg Documented by: Clonidine HCl (Catapres) 0.1 mg PO TID [facility] Last Admin: 08/03/19 14:28 Dose: 0.1 mg Documented by: Cyanocobalamin (Vitamin B-12) 1,000 mcg PO DAILY [facility] Last Admin: 08/03/19 11:03 Dose: 1,000 mcg Documented by: Docusate Sodium (Colace) 100 mg PO BID [facility] Last Admin: 08/03/19 11:02 Dose: 100 mg Documented by: Enoxaparin Sodium (Enoxaparin) 30 mg SUB-Q QDAY [facility] Last Admin: 08/03/19 09:28 Dose: 30 mg Documented by: Ferrous Sulfate (Feosol) 325 mg PO DAILY [facility] Last Admin: 08/03/19 11:02 Dose: 325 mg Documented by: Hydralazine HCl (Apresoline) 5 mg IV Q6H PRN PRN Reason: Hypertension Last Admin: 08/03/19 07:01 Dose: 5 mg Documented by: Hydralazine HCl (Apresoline) 25 mg PO TID [facility] Last Admin: 08/03/19 14:29 Dose: 25 mg Documented by: Dextrose/Sodium Chloride (D5/0.45ns) 1,000 mls @ 75 mls/hr IV DIRECT [facility] Last Admin: 08/03/19 00:17 Dose: 75 mls/hr Documented by: Levetiracetam (Keppra) 750 mg PO BID [facility] Last Admin: 08/03/19 14:29 Dose: 750 mg Documented by: Metoprolol Tartrate (Metoprolol) 50 mg PO BID [facility] Last Admin: 08/03/19 11:03 Dose: 50 mg Documented by: Nifedipine (Procardia Xl) 60 mg PO BID [facility] Last Admin: 08/03/19 14:28 Dose: 60 mg Documented by: Sertraline HCl (Zoloft) 50 mg PO QHS [facility] Tamsulosin HCl (Flomax) 0.4 mg PO QDAY [facility] Last Admin: 08/03/19 14:29 Dose: 0.4 mg Documented by: Review of Systems ROS unobtainable: due to mental status Exam - Vital Signs Vital signs: Vital Signs Temp Pulse Resp BP Pulse Ox 101.1 F H 88 16 137/85 95 08/02/19 14:05 08/02/19 14:05 08/02/19 14:05 08/02/19 14:05 08/02/19 14:05 - General Appearance General appearance: cachectic, moderate distress, chronically ill, frail EENT: mucous membranes moist Neck: Present: neck supple Respiratory: Clear to Ascultation Heart: regular, S1S2 Gastrointestinal: Present: normoactive bowel sounds Integumentary: no rash, warm and dry Neurologic: confused Psychiatric: agitated Results - Lab Results 08/02/19 14:38 08/03/19 14:47 Most recent lab results Calcium 8.9 mg/dL (8.4-10.2) 08/03/19 14:47 Assessment and Plan # Hypernatremia: likely related to decreased oral intake and elevated water deficit. Sodium has improved with fluids (156->150) - continue current IVF (D5W) - Oral fluids as tolerated - daily renal labs # Acute kidney injury: baseline creatinine likely around 2.2. Creatinine has improved from admission 5.3->4.2 with IV fluids. suspect [place] I will related to prerenal injury - continue supportive measures - daily labs - No indications for dialysis - Given improvement with fluids, will hold off on further workup - avoid nephrotoxins - replete electrolytes when necessary # Elevated troponins: appreciate cardiology input # history of seizures Thank you for this interesting consult. We will continue to follow and provide recommendations for renal needs
[2019-08-03] MEDS: SERTRALINE 50 MG TAB PO SCH (22:42)
[2019-08-04] MEDS: ENOXAPARIN 30 MG/0.3 ML INJ SUB-Q SCH (10:16)
[2019-08-04] MEDS: D5W/0.45% NACL 1,000 ML IV SCH (10:16)
[2019-08-04] MEDS: NIFEdipine XL 60 MG TAB PO SCH ×2 (10:16→22:56)
[2019-08-04] MEDS: TAMSULOSIN 0.4 MG CAP PO SCH (10:16)
[2019-08-04] MEDS: levETIRAcetam 500 MG TAB PO SCH ×2 (10:17→22:56)
[2019-08-04] MEDS: FERROUS SULFATE 325 MG TAB PO SCH (10:17)
[2019-08-04] MEDS: DOCUSATE SODIUM 100 MG CAP PO SCH ×2 (10:17→22:58)
[2019-08-04] MEDS: CYANOCOBALAMIN (VIT B-12) 1000 MCG TAB PO SCH (10:17)
[2019-08-04] MEDS: ASPIRIN EC 81 MG TAB PO SCH (10:17)
[2019-08-04] MEDS: METOPROLOL TARTRATE 50 MG TAB PO SCH ×2 (10:18→22:58)
[2019-08-04] MEDS: hydrALAZINE 25 MG TAB PO SCH ×3 (10:18→20:45)
[2019-08-04] MEDS: cloNIDine 0.1 MG TAB PO SCH ×3 (10:18→20:47)
[2019-08-04] MEDS ORDERED: POTASSIUM CHLORIDE ER 20 MEQ TAB PO ONE ×2 (13:07→16:42)
--- NOTE | 2019-08-04 13:09 | Progress Note ---
Assessment and Plan Assessment and plan: --Acute versus acute on chronic kidney disease; Closely monitor renal function avoid nephrotoxins Nephrology consultation requested --Hypokalemia; replace with KCl Monitor electrolytes --Hypernatremia; D5W, plenty of oral fluids, closely monitor electrolytes --Elevated troponins; Nonspecific probably secondary to chronic kidney disease However patient has risk factors, consider cardiology evaluation if needed --History of seizures; seizure precautions Antiseizure medications, supportive care --History of gout; Resume home medications --History of colon cancer; stable Patient follows up with his physicians upon discharge --DVT prophylaxis; on heparin Monitor closely and adjust the management as needed Plan of care reviewed with the patient and his nurse History Interval history: Patient seen and examined medical records reviewed Patient feels slightly better Mild chest pain, no shortness of breath Vital signs noted Hospitalist Physical - Constitutional Vitals: Temp Pulse Resp BP Pulse Ox 98.2 F 53 L 18 129/64 96 08/04/19 12:57 08/04/19 12:57 08/04/19 12:57 08/04/19 12:57 08/04/19 12:57 General appearance: Present: no acute distress, well-nourished - EENT Eyes: Present: PERRL, EOM intact - Neck Neck: Present: supple, normal ROM - Respiratory Respiratory effort: normal Respiratory: bilateral: diminished, negative: rales, rhonchi, wheezing - Cardiovascular Rhythm: regular Heart Sounds: Present: S1 & S2 - Extremities Extremities: no ischemia, No edema - Abdominal General gastrointestinal: soft, non-tender, non-distended, normal bowel sounds - Integumentary Integumentary: Present: clear, warm - Psychiatric Psychiatric: appropriate mood/affect, cooperative - Neurologic Neurologic: moves all extremities Results - Labs CBC & Chem 7: 08/02/19 14:38 08/03/19 14:47 Labs: Laboratory Last Values WBC 9.7 K/mm3 (4.5-11.0) 08/02/19 14:38 RBC 6.21 M/mm3 (3.65-5.03) H 08/02/19 14:38 Hgb 17.6 gm/dl (11.8-15.2) H 08/02/19 14:38 Hct 53.1 % (35.5-45.6) H 08/02/19 14:38 MCV 86 fl (84-94) 08/02/19 14:38 MCH 28 pg (28-32) 08/02/19 14:38 MCHC 33 % (32-34) 08/02/19 14:38 RDW 15.9 % (13.2-15.2) H 08/02/19 14:38 Plt Count 223 K/mm3 (140-440) 08/02/19 14:38 Lymph % (Auto) 11.8 % (13.4-35.0) L 08/02/19 14:38 Mcdonough % (Auto) 7.9 % (0.0-7.3) H 08/02/19 14:38 Eos % (Auto) 0.3 % (0.0-4.3) 08/02/19 14:38 Baso % (Auto) 0.2 % (0.0-1.8) 08/02/19 14:38 Lymph # 1.1 K/mm3 (1.2-5.4) L 08/02/19 14:38 Mcdonough # 0.8 K/mm3 (0.0-0.8) 08/02/19 14:38 Eos # 0.0 K/mm3 (0.0-0.4) 08/02/19 14:38 Baso # 0.0 K/mm3 (0.0-0.1) 08/02/19 14:38 Seg Neutrophils % 79.8 % (40.0-70.0) H 08/02/19 14:38 Seg Neutrophils # 7.7 K/mm3 (1.8-7.7) 08/02/19 14:38 PT 15.4 Sec. (12.2-14.9) H 08/02/19 14:38 INR 1.20 (0.87-1.13) H 08/02/19 14:38 APTT 30.2 Sec. (24.2-36.6) 08/02/19 14:38 Sodium 150 mmol/L (137-145) H 08/03/19 14:47 Potassium 3.3 mmol/L (3.6-5.0) L 08/03/19 14:47 Chloride 112.1 mmol/L (98-107) H 08/03/19 14:47 Carbon Dioxide 22 mmol/L (22-30) 08/03/19 14:47 Anion Gap 19 mmol/L 08/03/19 14:47 BUN 46 mg/dL (9-20) H 08/03/19 14:47 Creatinine 4.2 mg/dL (0.8-1.5) H 08/03/19 14:47 Estimated GFR 17 ml/min 08/03/19 14:47 BUN/Creatinine Ratio 11 % 08/03/19 14:47 Glucose 87 mg/dL (75-100) 08/03/19 14:47 Calcium 8.9 mg/dL (8.4-10.2) 08/03/19 14:47 Total Creatine Kinase 547 units/L (55-170) H 08/03/19 14:47 CK-MB (CK-2) 11.0 ng/mL (0.0-4.0) H 08/03/19 14:47 CK-MB (CK-2) Rel Index 2.0 (0-4) 08/03/19 14:47 Troponin T 0.032 ng/mL (0.00-0.029) H 08/04/19 05:55 Triglycerides 115 mg/dL (2-149) 08/02/19 14:38 Cholesterol 129 mg/dL (50-199) 08/02/19 14:38 LDL Cholesterol Direct 74 mg/dL (50-130) 08/02/19 14:38 HDL Cholesterol 41 mg/dL (40-59) 08/02/19 14:38 Cholesterol/HDL Ratio 3.14 % 08/02/19 14:38 Urine Color Yellow (Yellow) 08/02/19 Unknown Urine Turbidity Clear (Clear) 08/02/19 Unknown Urine pH 5.0 (5.0-7.0) 08/02/19 Unknown Ur Specific [place] 1.014 (1.003-1.030) 08/02/19 Unknown Urine Protein 30 mg/dl mg/dL (Negative) 08/02/19 Unknown Urine Glucose (UA) Neg mg/dL (Negative) 08/02/19 Unknown Urine Ketones Neg mg/dL (Negative) 08/02/19 Unknown Urine Blood Sm (Negative) 08/02/19 Unknown Urine Nitrite Neg (Negative) 08/02/19 Unknown Urine Bilirubin Neg (Negative) 08/02/19 Unknown Urine Urobilinogen < 2.0 mg/dL (<2.0) 08/02/19 Unknown Ur Leukocyte Esterase Neg (Negative) 08/02/19 Unknown Urine WBC (Auto) 2.0 /HPF (0.0-6.0) 08/02/19 Unknown Urine RBC (Auto) 1.0 /HPF (0.0-6.0) 08/02/19 Unknown U Epithel Cells (Auto) < 1.0 /HPF (0-13.0) 08/02/19 Unknown Urine Bacteria (Auto) 1+ /HPF (Negative) 08/02/19 Unknown Urine Mucus Few /HPF 08/02/19 Unknown Active Medications - Current Medications Current Medications: Generic Name Dose Route Start Last Admin Trade Name Freq PRN Reason Stop Dose Admin Aspirin 81 mg 08/03/19 11:00 08/04/19 10:17 Halfprin Ec PO 81 mg DAILY STAS Administration Clonidine HCl 0.1 mg 08/03/19 14:00 08/04/19 10:18 Catapres PO 0.1 mg TID STAS Administration Cyanocobalamin 1,000 mcg 08/03/19 11:00 08/04/19 10:17 Vitamin B-12 PO 1,000 mcg DAILY STAS Administration Docusate Sodium 100 mg 08/03/19 10:00 08/04/19 10:17 Colace PO 100 mg BID STAS Administration Enoxaparin Sodium 30 mg 08/03/19 10:00 08/04/19 10:16 Enoxaparin SUB-Q 30 mg QDAY STAS Administration Ferrous Sulfate 325 mg 08/03/19 11:00 08/04/19 10:17 Feosol PO 325 mg DAILY STAS Administration Hydralazine HCl 5 mg 08/03/19 01:07 08/03/19 18:55 Apresoline IV 5 mg Q6H PRN Administration Hypertension Hydralazine HCl 25 mg 08/03/19 14:00 08/04/19 10:18 Apresoline PO 25 mg TID STAS Administration Dextrose/Sodium Chloride 1,000 mls @ 75 mls/hr 08/02/19 23:00 08/04/19 10:16 D5/0.45ns IV 75 mls/hr DIRECT STAS Administration Levetiracetam 750 mg 08/03/19 11:20 08/04/19 10:17 Keppra PO 750 mg BID STAS Administration Metoprolol Tartrate 50 mg 08/03/19 10:00 08/04/19 10:18 Metoprolol PO 50 mg BID STAS Administration Nifedipine 60 mg 08/03/19 10:00 08/04/19 10:16 Procardia Xl PO 60 mg BID STAS Administration Sertraline HCl 50 mg 08/03/19 22:00 08/03/19 22:42 Zoloft PO 50 mg QHS STAS Administration Tamsulosin HCl 0.4 mg 08/03/19 10:00 08/04/19 10:16 Flomax PO 0.4 mg QDAY STAS Administration
--- NOTE | 2019-08-04 14:02 | Progress Note ---
Assessment and Plan Patient without chest pain.Troponin's are coming down,and also considering T wave changes,will get ischemic evaluation,will get iv Lexiscan MPI. Subjective Date of service: 08/04/19 Interval history: Patient is comfortable,denies any chest pain or sob,no previous cardiac w/u done.Troponin's are lower,EKG showed S.R with T wave changes in anterior leads. Objective Vital Signs Temp Pulse Pulse Resp BP BP Pulse Ox 08/04/19 12:57 98.2 F 53 L 18 129/64 96 08/04/19 10:18 64 158/76 08/04/19 10:00 62 08/04/19 08:22 97.8 F 55 L 18 158/76 95 08/04/19 03:57 98.3 F 69 18 149/77 95 08/04/19 03:41 75 08/03/19 23:37 98.0 F 57 L 18 159/77 97 08/03/19 22:43 65 145/79 08/03/19 20:48 61 08/03/19 20:41 66 179/64 08/03/19 20:02 98.1 F 66 18 179/84 95 08/03/19 20:01 71 08/03/19 18:55 174/81 08/03/19 18:54 69 174/81 08/03/19 18:51 174/81 08/03/19 14:33 99 F 60 18 98 08/03/19 14:29 188/95 08/03/19 14:28 60 188/95 08/03/19 14:27 54 L 98 08/03/19 14:25 188/95 - Physical Examination HEENT: Positive: PERRL, Normocephaly Neck: Positive: neck supple Cardiac: Positive: Regular Rhythm Lungs: Positive: Normal Exam Neuro: Positive: Grossly Intact Abdomen: Positive: Soft. Negative: Tender Skin: Negative: Rash Musculoskeletal: No Pain Extremities: Absent: edema - Labs and Meds Cardiac Enzymes 08/03/19 Range/Units 14:47 CK-MB (CK-2) 11.0 H (0.0-4.0) ng/mL Comprehensive Metabolic Panel 08/03/19 Range/Units 14:47 Sodium 150 H (137-145) mmol/L Potassium 3.3 L (3.6-5.0) mmol/L Chloride 112.1 H (98-107) mmol/L Carbon Dioxide 22 (22-30) mmol/L BUN 46 H (9-20) mg/dL Creatinine 4.2 H (0.8-1.5) mg/dL Glucose 87 (75-100) mg/dL Calcium 8.9 (8.4-10.2) mg/dL - Imaging and Cardiology EKG: report reviewed, image reviewed Echo: pending - EKG Sinus rhythms and dysrhythmias: sinus rhythm Chamber hypertrophy or enlargement: left ventricular hypertro Repolarization changes or abnormalities: repolarization abn secondary to ventricular hypertrophy
--- NOTE | 2019-08-04 20:25 | Progress Note ---
Assessment and Plan Assessment: * Acute kidney iinjury secondary to prerenal azotemia on stage III CKD --SCr 2.2mg/dL in 2018 * Elevated troponin * Hypernatremia * Hypokalemia Plan: * Continue IVF - SCr improved, Na trending down * Cardiac work up in progress * Elevated Hb noted - ?secondary to volume contraction vs other. Will obtain renal ultrasound * Replete lytes prn * Dose medications for renal function * Avoid potential nephrotoxins * AM labs Subjective Date of service: 08/04/19 Interval history: Patient has no complaints today. Denies SOB. Tolerating po. Objective - Vital Signs Vital signs: Vital Signs - 12hr 08/04/19 08/04/19 08/04/19 10:00 10:18 12:57 Temperature 98.2 F Pulse Rate 64 53 L Pulse Rate [ 62 Apical] Respiratory 18 Rate Blood Pressure 158/76 129/64 O2 Sat by Pulse 96 Oximetry 08/04/19 08/04/19 08/04/19 14:00 15:00 16:50 Temperature 97.9 F Pulse Rate 62 58 L 53 L Pulse Rate [ Apical] Respiratory 18 Rate Blood Pressure 134/78 129/70 O2 Sat by Pulse 95 Oximetry - General Appearance General appearance: well-developed, well-nourished EENT: ATNC Respiratory: Present: Clear to Ascultation Cardiology: regular, S1S2 Gastrointestinal: normal, no tenderness, no distended Integumentary: no rash, warm and dry Neurologic: no focal deficit, alert and oriented x3 Psychiatric: cooperative - Lab 08/02/19 14:38 08/03/19 14:47 Most recent lab results Calcium 8.9 mg/dL (8.4-10.2) 08/03/19 14:47 Medications & Allergies - Medications Allergies/Adverse Reactions: Allergies simvastatin Allergy (Verified 01/04/18 13:15) Unknown Home Medications: Home Medications Medication Instructions Recorded Confirmed Last Taken Type Aspirin EC [Halfprin EC] 1 tab PO DAILY 01/04/18 01/04/18 Unknown History AtorvaSTATin [Lipitor] 40 mg PO QHS 01/04/18 01/04/18 Unknown History Cyanocobalamin (Vitamin B-12) 1,000 mcg PO DAILY 01/04/18 01/04/18 Unknown History [Vitamin B-12] Docusate Sodium [Colace] 100 mg PO BID 01/04/18 01/04/18 Unknown History Ferrous Sulfate [Iron] 325 mg PO DAILY 01/04/18 01/04/18 Unknown History Metoprolol [Lopressor TAB] 50 mg PO BID 01/04/18 01/04/18 Unknown History NIFEdipine [Nifedipine ER] 60 mg PO BID 01/04/18 01/04/18 Unknown History Omeprazole 40 mg PO DAILY 01/04/18 01/04/18 Unknown History Sertraline [Zoloft] 50 mg PO QHS 01/04/18 01/04/18 Unknown History Tamsulosin [Flomax] 0.4 mg PO QDAY 01/04/18 01/04/18 Unknown History cloNIDine [Catapres] 0.1 mg PO TID #20 tablet 01/04/18 Unknown Rx hydrALAZINE [Apresoline] 25 mg PO TID 01/04/18 01/04/18 Unknown History levETIRAcetam 750 mg PO BID 01/04/18 01/04/18 Unknown History Active Medications: Generic Name Dose Route Start Last Admin Trade Name Freq PRN Reason Stop Dose Admin Aspirin 81 mg 08/03/19 11:00 08/04/19 10:17 Halfprin Ec PO 81 mg DAILY STAS Administration Clonidine HCl 0.1 mg 08/03/19 14:00 08/04/19 15:00 Catapres PO 0.1 mg TID STAS Administration Cyanocobalamin 1,000 mcg 08/03/19 11:00 08/04/19 10:17 Vitamin B-12 PO 1,000 mcg DAILY STAS Administration Docusate Sodium 100 mg 08/03/19 10:00 08/04/19 10:17 Colace PO 100 mg BID STAS Administration Enoxaparin Sodium 30 mg 08/03/19 10:00 08/04/19 10:16 Enoxaparin SUB-Q 30 mg QDAY STAS Administration Ferrous Sulfate 325 mg 08/03/19 11:00 08/04/19 10:17 Feosol PO 325 mg DAILY STAS Administration Hydralazine HCl 5 mg 08/03/19 01:07 08/03/19 18:55 Apresoline IV 5 mg Q6H PRN Administration Hypertension Hydralazine HCl 25 mg 08/03/19 14:00 08/04/19 15:00 Apresoline PO 25 mg TID STAS Administration Dextrose/Sodium Chloride 1,000 mls @ 75 mls/hr 08/02/19 23:00 08/04/19 10:16 D5/0.45ns IV 75 mls/hr DIRECT STAS Administration Levetiracetam 750 mg 08/03/19 11:20 08/04/19 10:17 Keppra PO 750 mg BID STAS Administration Metoprolol Tartrate 50 mg 08/03/19 10:00 08/04/19 10:18 Metoprolol PO 50 mg BID STAS Administration Nifedipine 60 mg 08/03/19 10:00 08/04/19 10:16 Procardia Xl PO 60 mg BID STAS Administration Sertraline HCl 50 mg 08/03/19 22:00 08/03/19 22:42 Zoloft PO 50 mg QHS STAS Administration Tamsulosin HCl 0.4 mg 08/03/19 10:00 08/04/19 10:16 Flomax PO 0.4 mg QDAY STAS Administration
[2019-08-04] MEDS: SERTRALINE 50 MG TAB PO SCH (22:57)
[2019-08-05] MEDS: D5W/0.45% NACL 1,000 ML IV SCH ×2 (00:20→18:08)
[2019-08-05] MEDS ORDERED: REGADENOSON 0.4 MG/5 ML INJ IV ONE (07:31)
[2019-08-05] MEDS: cloNIDine 0.1 MG TAB PO SCH ×3 (08:00→22:29)
--- NOTE | 2019-08-05 10:42 | Treadmill Report ---
LEXISCAN STRESS REPORT REASON FOR STUDY: Elevated troponin level. STRESS TEST PROTOCOL: The patient received 0.4 mg of Lexiscan intravenously over 10 seconds. Tc-99m Tetrofosmin was subsequently injected. Baseline ECG, normal sinus rhythm with left ventricular hypertrophy and nonspecific ST segment and T-wave abnormalities. Lexiscan ECG, no ischemic changes. No chest pain. No arrhythmias. IMPRESSION: Electrocardiographically negative stress test. Nuclear imaging report to follow. JOB# [id number] AGO/NTS
--- NOTE | 2019-08-05 12:46 | Progress Note ---
Assessment and Plan Echo reviewed - EF 55-60%, mild dilation of aortic root and ascending aorta, trace MR, trace TR, severe LVH, impaired relaxation, due to appearance of LV myocardium infiltrative disease cannot be excluded. Can consider cardiac MRI as OP for further evaluation. S/p lexiscan MPI stress test this AM which was negative for ischemia, EF 34%. Currently stable cardiac status. Nothing further to add from cardiac perspective at this time. Will sign off. Recommend pt follow up in our office with Dr. Olson within 1-2 weeks of discharge ([phone]). The patient has been seen in conjunction with Dr. Olson who agrees with the assessment and plan of care. - Patient Problems (1) Altered mental status Current Visit: Yes Status: Acute (2) Elevated troponin Current Visit: Yes Status: Acute (3) Hypertension Current Visit: Yes Status: Chronic (4) Renal insufficiency Current Visit: Yes Status: Acute (5) History of CVA (cerebrovascular accident) Current Visit: Yes Status: Chronic (6) History of colon cancer Current Visit: Yes Status: Chronic (7) History of seizure Current Visit: Yes Status: Chronic (8) Dementia Current Visit: Yes Status: Chronic Subjective Date of service: 08/05/19 Principal diagnosis: AMS; elevated trop Interval history: pt for stress test, no current complaints. in SR on tele with SB HR 40s noted overnight. Objective Last Vital Signs Temp 99.3 F 08/05/19 13:23 Pulse 78 08/05/19 13:29 Resp 18 08/05/19 13:23 BP 148/67 08/05/19 13:29 Pulse Ox 100 08/05/19 13:23 - Physical Examination General: No Apparent Distress HEENT: Positive: PERRL, Normocephaly Neck: Positive: neck supple Cardiac: Positive: Reg Rate and Rhythm, S1/S2 Lungs: Positive: Decreased Breath Sounds Neuro: Positive: Grossly Intact Abdomen: Positive: Soft. Negative: Tender Skin: Negative: Rash Musculoskeletal: No Pain Extremities: Absent: edema - Imaging and Cardiology EKG: report reviewed, image reviewed Echo: pending - EKG Sinus rhythms and dysrhythmias: sinus rhythm Chamber hypertrophy or enlargement: left ventricular hypertro Repolarization changes or abnormalities: repolarization abn secondary to ventricular hypertrophy
[2019-08-05] MEDS: FERROUS SULFATE 325 MG TAB PO SCH (13:25)
[2019-08-05] MEDS: ENOXAPARIN 30 MG/0.3 ML INJ SUB-Q SCH (13:25)
[2019-08-05] MEDS: hydrALAZINE 25 MG TAB PO SCH ×3 (13:26→22:29)
[2019-08-05] MEDS: NIFEdipine XL 60 MG TAB PO SCH ×2 (13:26→22:29)
[2019-08-05] MEDS: DOCUSATE SODIUM 100 MG CAP PO SCH ×2 (13:26→22:12)
[2019-08-05] MEDS: CYANOCOBALAMIN (VIT B-12) 1000 MCG TAB PO SCH (13:27)
[2019-08-05] MEDS: levETIRAcetam 500 MG TAB PO SCH ×2 (13:28→22:29)
[2019-08-05] MEDS: METOPROLOL TARTRATE 50 MG TAB PO SCH ×2 (13:28→22:29)
--- NOTE | 2019-08-05 13:29 | Treadmill Report ---
THALLIUM REPORT REASON FOR STUDY: Elevated troponin level. IMAGING PROTOCOL: The patient received 10 mCi of Tc-99m Tetrofosmin for rest imaging, and 28 mCi of technetium Tetrofosmin for stress imaging. Imaging for all procedures was completed 30-90 minutes following the initial injection of Technetium 99m Tetrofosmin. SPECT imaging in the 180 degree arc was performed in the right anterior oblique projection. Computerized reconstruction of the images was performed for analysis. NUCLEAR IMAGING RESULTS: Normal left ventricular cavity size with no change from stress to rest. Distribution of radionuclide within the left ventricle revealed a medium size area of photo-induction involving the inferior and inferoapical region. The degree of photon reduction is moderate. Rest imaging does not show any significant improvement in this defect. In addition, there is a small area of photon reduction involving the inferolateral wall. The degree of photon reduction is moderate. Rest imaging does not show any significant improvement in this defect. Gated SPECT imaging revealed moderately severe global left ventricular systolic dysfunction with severe inferior and septal hypokinesis. The calculated left ventricular ejection fraction is 34%. IMPRESSION: Medium size fixed inferior and inferoapical defect. Small fixed inferolateral defect. Moderately severe global left ventricular systolic dysfunction with severe inferior and septal hypokinesis. EF 34%. These findings suggest prior infarction involving the right coronary and left circumflex coronary artery territories. In addition, a cardiomyopathic process may be present in this patient. No evidence of significant stress-induced ischemia. [facility]# [id number] JUANA/RIKKI JOHN
--- NOTE | 2019-08-05 14:07 | Ultrasound Report ---
ULTRASOUND RENAL INDICATION: NYLA. COMPARISON: No relevant prior imaging study available. FINDINGS: RIGHT KIDNEY: Size: 9.2 cm. Echogenicity: Increased. Cortical thickness: There is cortical thinning. Cortex measures approximatel y 8 mm. Stones: None. Hydronephrosis: None. Cyst or mass: None. LEFT KIDNEY: Size: 10.1 cm. Echogenicity: Increased. Cortical thickness: Mild cortical thinning. Stones: None. Hydronephrosis: None. Cyst or mass: None. Urinary Bladder: No significant abnormality. Free Fluid: None. Additional Findings: Cholelithiasis. There is sludge in the gallbladder is well.. IMPRESSION 1. Kidneys are increased in echogenicity characteristic of medical renal disease. There is mild corti donald thinning right greater than left. There is no hydronephrosis.. 2. There is cholelithiasis. There is also sludge in the lumen of the gallbladder. Signer Name: Bennie Shrestha MD Signed: 08/05/2019 2:02 PM Workstation Name: [id number]
--- NOTE | 2019-08-05 14:52 | Discharge Summary ---
Providers - Providers Date of Admission: 08/02/19 22:00 Date of discharge: 08/05/19 Attending physician: RADHA DOWNING 08/03/19 01:07 Consult to Physician [CONS] Routine Comment: Consulting Provider: MIRA SHEIKH Physician Instructions: Reason For Exam: hypernatremia, rf 08/03/19 09:11 Physical Therapy Evaluation and Treat [CONS] Routine Comment: Reason For Exam: evaluate and treat 08/03/19 12:05 Consult to Physician [CONS] Routine Comment: Consulting Provider: DELANEY MCHUGH Physician Instructions: Reason For Exam: elevated cardiac enzymes Primary care physician: [facility] Hospitalization Condition: Fair Procedures: S/p lexiscan MPI stress test negative for ischemia, EF 34%. Hospital course: --Acute versus acute on chronic kidney disease; Closely monitor renal function avoid nephrotoxins Nephrology consultation requested --Hypokalemia; replace with KCl Monitor electrolytes --Hypernatremia; D5W, plenty of oral fluids, closely monitor electrolytes --Elevated troponins; Nonspecific probably secondary to chronic kidney disease However patient has risk factors, consider cardiology evaluation if needed --History of seizures; seizure precautions Antiseizure medications, supportive care --History of gout; Resume home medications --History of colon cancer; stable Patient follows up with his physicians upon discharge --DVT prophylaxis; on heparin Monitor closely and adjust the management as needed Plan of care reviewed with the patient and his nurse Disposition: DC-30 STILL A PATIENT Exam - Constitutional Vitals: Temp Pulse Resp BP Pulse Ox 99.3 F 78 18 148/67 100 08/05/19 13:23 08/05/19 13:29 08/05/19 13:23 08/05/19 13:29 08/05/19 13:23 Plan Additional Instructions: F/U Dr. Mchugh within 1-2 weeks of discharge ([phone]). Outpatient cardiac MRI Follow up with: CHING VARGAS [Primary Care Provider] - 3-5 Days
--- NOTE | 2019-08-05 15:39 | Progress Note ---
Assessment and Plan - Patient Problems (1) Acute kidney injury superimposed on chronic kidney disease Current Visit: Yes Status: Acute Plan to address problem: baseline creatinine 2.2 an 2018 creatinine on admission was 5 no volume overload on exam continue intravenous fluids avoid nephrotoxic medications (2) Hypertension Current Visit: Yes Status: Chronic Plan to address problem: hypertension, controlled. Continue current medications (3) Acute hypernatremia Current Visit: Yes Status: Acute Plan to address problem: Acute hypERnatremia Continue hypotonic solutions INCREASE HALF-NORMAL SALINE TO 1 25 CC AN HOUR (4) Hypokalemia Current Visit: Yes Status: Acute Plan to address problem: HYPOKALEMIA RECHECK POTASSIUM LEVELS Subjective Principal diagnosis: AMS; elevated trop Interval history: 73-year-old gentleman with chronic kidney disease, hypertension admitted with acute kidney injury patient with improving renal functione denies any lower extremity edema. Denies any shortness of breath Objective - Vital Signs Vital signs: Vital Signs - 12hr 08/05/19 08/05/19 08/05/19 06:22 09:17 09:55 Temperature 98.2 F 99.3 F Pulse Rate 58 L 90 Respiratory 16 18 Rate Blood Pressure 170/74 158/77 163/75 O2 Sat by Pulse 96 96 Oximetry 08/05/19 08/05/19 08/05/19 10:28 10:29 10:30 Temperature Pulse Rate Respiratory Rate Blood Pressure 139/79 130/72 140/62 O2 Sat by Pulse Oximetry 08/05/19 08/05/19 08/05/19 10:31 10:32 13:23 Temperature 99.3 F Pulse Rate 77 Respiratory 18 Rate Blood Pressure 136/70 148/67 181/77 O2 Sat by Pulse 100 Oximetry 08/05/19 08/05/19 08/05/19 13:27 13:28 13:29 Temperature Pulse Rate 78 78 78 Respiratory Rate Blood Pressure 148/67 148/67 148/67 O2 Sat by Pulse Oximetry - General Appearance General appearance: well-developed, well-nourished EENT: ATNC, PERRL Neck: no JVD Respiratory: Present: Clear to Ascultation Cardiology: regular, S1S2 Gastrointestinal: normal, normoactive bowel sounds Integumentary: no rash Neurologic: no focal deficit, alert and oriented x3, CN 3-12 intact Psychiatric: mood/affect appropriate - Lab 08/02/19 14:38 08/03/19 14:47 Most recent lab results Calcium 8.9 mg/dL (8.4-10.2) 08/03/19 14:47 - Imaging Chest x-ray: other (i reviewed chest x-ray without edema) Medications & Allergies - Medications Allergies/Adverse Reactions: Allergies simvastatin Allergy (Verified 01/04/18 13:15) Unknown Home Medications: Home Medications Medication Instructions Recorded Confirmed Last Taken Type Aspirin EC [Halfprin EC] 1 tab PO DAILY 01/04/18 01/04/18 Unknown History AtorvaSTATin [Lipitor] 40 mg PO QHS 01/04/18 01/04/18 Unknown History Cyanocobalamin (Vitamin B-12) 1,000 mcg PO DAILY 01/04/18 01/04/18 Unknown History [Vitamin B-12] Docusate Sodium [Colace] 100 mg PO BID 01/04/18 01/04/18 Unknown History Ferrous Sulfate [Iron] 325 mg PO DAILY 01/04/18 01/04/18 Unknown History Metoprolol [Lopressor TAB] 50 mg PO BID 01/04/18 01/04/18 Unknown History NIFEdipine [Nifedipine ER] 60 mg PO BID 01/04/18 01/04/18 Unknown History Omeprazole 40 mg PO DAILY 01/04/18 01/04/18 Unknown History Sertraline [Zoloft] 50 mg PO QHS 01/04/18 01/04/18 Unknown History Tamsulosin [Flomax] 0.4 mg PO QDAY 01/04/18 01/04/18 Unknown History cloNIDine [Catapres] 0.1 mg PO TID #20 tablet 01/04/18 Unknown Rx hydrALAZINE [Apresoline] 25 mg PO TID 01/04/18 01/04/18 Unknown History levETIRAcetam 750 mg PO BID 01/04/18 01/04/18 Unknown History Active Medications: Generic Name Dose Route Start Last Admin Trade Name Freq PRN Reason Stop Dose Admin Aspirin 81 mg 08/03/19 11:00 08/04/19 10:17 Halfprin Ec PO 81 mg DAILY STAS Administration Clonidine HCl 0.1 mg 08/03/19 14:00 08/05/19 13:29 Catapres PO 0.1 mg TID STAS Administration Cyanocobalamin 1,000 mcg 08/03/19 11:00 08/05/19 13:27 Vitamin B-12 PO 1,000 mcg DAILY STAS Administration Docusate Sodium 100 mg 08/03/19 10:00 08/05/19 13:26 Colace PO 100 mg BID STAS Administration Enoxaparin Sodium 30 mg 08/03/19 10:00 08/05/19 13:25 Enoxaparin SUB-Q 30 mg QDAY STAS Administration Ferrous Sulfate 325 mg 08/03/19 11:00 08/05/19 13:25 Feosol PO 325 mg DAILY STAS Administration Hydralazine HCl 5 mg 08/03/19 01:07 08/03/19 18:55 Apresoline IV 5 mg Q6H PRN Administration Hypertension Hydralazine HCl 25 mg 08/03/19 14:00 08/05/19 13:27 Apresoline PO 25 mg TID STAS Administration Dextrose/Sodium Chloride 1,000 mls @ 125 mls/hr 08/05/19 09:00 D5/0.45ns IV DIRECT STAS Levetiracetam 750 mg 08/03/19 11:20 08/05/19 13:28 Keppra PO 750 mg BID STAS Administration Metoprolol Tartrate 50 mg 08/03/19 10:00 08/05/19 13:28 Metoprolol PO 50 mg BID STAS Administration Nifedipine 60 mg 08/03/19 10:00 08/05/19 13:26 Procardia Xl PO 60 mg BID STAS Administration Sertraline HCl 50 mg 08/03/19 22:00 08/04/19 22:57 Zoloft PO 50 mg QHS STAS Administration Tamsulosin HCl 0.4 mg 08/03/19 10:00 08/04/19 10:16 Flomax PO 0.4 mg QDAY STAS Administration
[2019-08-05] MEDS: ASPIRIN EC 81 MG TAB PO SCH (18:26)
[2019-08-05] MEDS: TAMSULOSIN 0.4 MG CAP PO SCH (18:26)
--- NOTE | 2019-08-05 19:17 | Progress Note ---
Assessment and Plan Assessment and plan: --NSTEMI: Probably type II Stress test negative for ischemia The current management --Acute versus acute on chronic kidney disease; Worsening renal function Nephrology following --Hypokalemia; replace with KCl Monitor electrolytes --Hypernatremia; D5W, plenty of oral fluids, closely monitor electrolytes --History of seizures; seizure precautions Antiseizure medications, supportive care --History of gout; Resume home medications --History of colon cancer; stable Patient follows up with his physicians upon discharge --DVT prophylaxis; on heparin Monitor closely and adjust the management as needed Plan of care reviewed with the patient and his nurse History Interval history: The patient underwent stress test which was negative for ischemia Cleared by cardiology for discharge However patient has acute on chronic kidney disease With with a minimal improvement of renal function Discussed with the public health officer, want to monitor renal function next 1 or 2 days and discharge home when creatinine is reasonable level . Patient has no new complaints Vital signs reviewed Hospitalist Physical - Constitutional Vitals: Temp Pulse Resp BP Pulse Ox 99.8 F H 62 18 140/69 95 08/05/19 16:20 08/05/19 16:20 08/05/19 16:20 08/05/19 16:20 08/05/19 16:20 General appearance: Present: no acute distress, well-nourished - EENT Eyes: Present: PERRL, EOM intact - Neck Neck: Present: supple, normal ROM - Respiratory Respiratory effort: normal Respiratory: bilateral: diminished, negative: rales, rhonchi, wheezing - Cardiovascular Rhythm: regular Heart Sounds: Present: S1 & S2 - Extremities Extremities: no ischemia, No edema - Abdominal General gastrointestinal: soft, non-tender, non-distended, normal bowel sounds - Integumentary Integumentary: Present: clear, warm - Psychiatric Psychiatric: appropriate mood/affect, cooperative - Neurologic Neurologic: CNII-XII intact, moves all extremities Results - Labs CBC & Chem 7: 08/02/19 14:38 08/03/19 14:47 Labs: Laboratory Last Values WBC 9.7 K/mm3 (4.5-11.0) 08/02/19 14:38 RBC 6.21 M/mm3 (3.65-5.03) H 08/02/19 14:38 Hgb 17.6 gm/dl (11.8-15.2) H 08/02/19 14:38 Hct 53.1 % (35.5-45.6) H 08/02/19 14:38 MCV 86 fl (84-94) 08/02/19 14:38 MCH 28 pg (28-32) 08/02/19 14:38 MCHC 33 % (32-34) 08/02/19 14:38 RDW 15.9 % (13.2-15.2) H 08/02/19 14:38 Plt Count 223 K/mm3 (140-440) 08/02/19 14:38 Lymph % (Auto) 11.8 % (13.4-35.0) L 08/02/19 14:38 [place] % (Auto) 7.9 % (0.0-7.3) H 08/02/19 14:38 Eos % (Auto) 0.3 % (0.0-4.3) 08/02/19 14:38 Baso % (Auto) 0.2 % (0.0-1.8) 08/02/19 14:38 Lymph # 1.1 K/mm3 (1.2-5.4) L 08/02/19 14:38 [place] # 0.8 K/mm3 (0.0-0.8) 08/02/19 14:38 Eos # 0.0 K/mm3 (0.0-0.4) 08/02/19 14:38 Baso # 0.0 K/mm3 (0.0-0.1) 08/02/19 14:38 Seg Neutrophils % 79.8 % (40.0-70.0) H 08/02/19 14:38 Seg Neutrophils # 7.7 K/mm3 (1.8-7.7) 08/02/19 14:38 PT 15.4 Sec. (12.2-14.9) H 08/02/19 14:38 INR 1.20 (0.87-1.13) H 08/02/19 14:38 APTT 30.2 Sec. (24.2-36.6) 08/02/19 14:38 Sodium 150 mmol/L (137-145) H 08/03/19 14:47 Potassium 3.3 mmol/L (3.6-5.0) L 08/03/19 14:47 Chloride 112.1 mmol/L (98-107) H 08/03/19 14:47 Carbon Dioxide 22 mmol/L (22-30) 08/03/19 14:47 Anion Gap 19 mmol/L 08/03/19 14:47 BUN 46 mg/dL (9-20) H 08/03/19 14:47 Creatinine 4.2 mg/dL (0.8-1.5) H 08/03/19 14:47 Estimated GFR 17 ml/min 08/03/19 14:47 BUN/Creatinine Ratio 11 % 08/03/19 14:47 Glucose 87 mg/dL (75-100) 08/03/19 14:47 Calcium 8.9 mg/dL (8.4-10.2) 08/03/19 14:47 Total Creatine Kinase 547 units/L (55-170) H 08/03/19 14:47 CK-MB (CK-2) 11.0 ng/mL (0.0-4.0) H 08/03/19 14:47 CK-MB (CK-2) Rel Index 2.0 (0-4) 08/03/19 14:47 Troponin T 0.032 ng/mL (0.00-0.029) H 08/04/19 05:55 Triglycerides 115 mg/dL (2-149) 08/02/19 14:38 Cholesterol 129 mg/dL (50-199) 08/02/19 14:38 LDL Cholesterol Direct 74 mg/dL (50-130) 08/02/19 14:38 HDL Cholesterol 41 mg/dL (40-59) 08/02/19 14:38 Cholesterol/HDL Ratio 3.14 % 08/02/19 14:38 Urine Color Yellow (Yellow) 08/02/19 Unknown Urine Turbidity Clear (Clear) 08/02/19 Unknown Urine pH 5.0 (5.0-7.0) 08/02/19 Unknown Ur Specific [place] 1.014 (1.003-1.030) 08/02/19 Unknown Urine Protein 30 mg/dl mg/dL (Negative) 08/02/19 Unknown Urine Glucose (UA) Neg mg/dL (Negative) 08/02/19 Unknown Urine Ketones Neg mg/dL (Negative) 08/02/19 Unknown Urine Blood Sm (Negative) 08/02/19 Unknown Urine Nitrite Neg (Negative) 08/02/19 Unknown Urine Bilirubin Neg (Negative) 08/02/19 Unknown Urine Urobilinogen < 2.0 mg/dL (<2.0) 08/02/19 Unknown Ur Leukocyte Esterase Neg (Negative) 08/02/19 Unknown Urine WBC (Auto) 2.0 /HPF (0.0-6.0) 08/02/19 Unknown Urine RBC (Auto) 1.0 /HPF (0.0-6.0) 08/02/19 Unknown U Epithel Cells (Auto) < 1.0 /HPF (0-13.0) 08/02/19 Unknown Urine Bacteria (Auto) 1+ /HPF (Negative) 08/02/19 Unknown Urine Mucus Few /HPF 08/02/19 Unknown Active Medications - Current Medications Current Medications: Generic Name Dose Route Start Last Admin Trade Name Freq PRN Reason Stop Dose Admin Aspirin 81 mg 08/03/19 11:00 08/05/19 18:26 Halfprin Ec PO 81 mg DAILY STAS Administration Clonidine HCl 0.1 mg 08/03/19 14:00 08/05/19 13:29 Catapres PO 0.1 mg TID STAS Administration Cyanocobalamin 1,000 mcg 08/03/19 11:00 08/05/19 13:27 Vitamin B-12 PO 1,000 mcg DAILY STAS Administration Docusate Sodium 100 mg 08/03/19 10:00 08/05/19 13:26 Colace PO 100 mg BID STAS Administration Enoxaparin Sodium 30 mg 08/03/19 10:00 08/05/19 13:25 Enoxaparin SUB-Q 30 mg QDAY STAS Administration Ferrous Sulfate 325 mg 08/03/19 11:00 08/05/19 13:25 Feosol PO 325 mg DAILY STAS Administration Hydralazine HCl 5 mg 08/03/19 01:07 08/03/19 18:55 Apresoline IV 5 mg Q6H PRN Administration Hypertension Hydralazine HCl 25 mg 08/03/19 14:00 08/05/19 13:27 Apresoline PO 25 mg TID STAS Administration Dextrose/Sodium Chloride 1,000 mls @ 125 mls/hr 08/05/19 09:00 08/05/19 18:08 D5/0.45ns IV 125 mls/hr DIRECT STAS Administration Levetiracetam 750 mg 08/03/19 11:20 08/05/19 13:28 Keppra PO 750 mg BID STAS Administration Metoprolol Tartrate 50 mg 08/03/19 10:00 08/05/19 13:28 Metoprolol PO 50 mg BID STAS Administration Nifedipine 60 mg 08/03/19 10:00 08/05/19 13:26 Procardia Xl PO 60 mg BID STAS Administration Sertraline HCl 50 mg 08/03/19 22:00 08/04/19 22:57 Zoloft PO 50 mg QHS STAS Administration Tamsulosin HCl 0.4 mg 08/03/19 10:00 08/05/19 18:26 Flomax PO 0.4 mg QDAY STAS Administration
[2019-08-05 22:14] LABS: Calcium 7.9 mg/dL (8.4-10.2)
[2019-08-05] MEDS: SERTRALINE 50 MG TAB PO SCH (22:29)
[2019-08-06] MEDS: D5W/0.45% NACL 1,000 ML IV SCH ×2 (05:59→08:45)
--- NOTE | 2019-08-06 08:10 | Progress Note ---
Assessment and Plan Assessment and plan: --NSTEMI: Probably type II Stress test negative for ischemia The current management --Acute versus acute on chronic kidney disease III; Mild improvement, monitor renal function avoid nephrotoxins Nephrology following --Hypokalemia; replace with KCl Monitor electrolytes --Hypernatremia; D5W, plenty of oral fluids, closely monitor electrolytes --History of seizures; seizure precautions Antiseizure medications, supportive care --History of gout; Resume home medications --History of colon cancer; stable Patient follows up with his physicians upon discharge --DVT prophylaxis; on heparin Monitor closely and adjust the management as needed Plan of care reviewed with the patient and his nurse Hospitalist Physical - Constitutional Vitals: Temp Pulse Resp BP Pulse Ox 98.7 F 54 L 16 145/75 98 08/06/19 04:41 08/06/19 06:00 08/06/19 04:41 08/06/19 04:41 08/06/19 04:41 General appearance: Present: no acute distress, well-nourished Results - Labs CBC & Chem 7: 08/02/19 14:38 08/05/19 17:08 Labs: Laboratory Last Values WBC 9.7 K/mm3 (4.5-11.0) 08/02/19 14:38 RBC 6.21 M/mm3 (3.65-5.03) H 08/02/19 14:38 Hgb 17.6 gm/dl (11.8-15.2) H 08/02/19 14:38 Hct 53.1 % (35.5-45.6) H 08/02/19 14:38 MCV 86 fl (84-94) 08/02/19 14:38 MCH 28 pg (28-32) 08/02/19 14:38 MCHC 33 % (32-34) 08/02/19 14:38 RDW 15.9 % (13.2-15.2) H 08/02/19 14:38 Plt Count 223 K/mm3 (140-440) 08/02/19 14:38 Lymph % (Auto) 11.8 % (13.4-35.0) L 08/02/19 14:38 [place] % (Auto) 7.9 % (0.0-7.3) H 08/02/19 14:38 Eos % (Auto) 0.3 % (0.0-4.3) 08/02/19 14:38 Baso % (Auto) 0.2 % (0.0-1.8) 08/02/19 14:38 Lymph # 1.1 K/mm3 (1.2-5.4) L 08/02/19 14:38 [place] # 0.8 K/mm3 (0.0-0.8) 08/02/19 14:38 Eos # 0.0 K/mm3 (0.0-0.4) 08/02/19 14:38 Baso # 0.0 K/mm3 (0.0-0.1) 08/02/19 14:38 Seg Neutrophils % 79.8 % (40.0-70.0) H 08/02/19 14:38 Seg Neutrophils # 7.7 K/mm3 (1.8-7.7) 08/02/19 14:38 PT 15.4 Sec. (12.2-14.9) H 08/02/19 14:38 INR 1.20 (0.87-1.13) H 08/02/19 14:38 APTT 30.2 Sec. (24.2-36.6) 08/02/19 14:38 Sodium 145 mmol/L (137-145) 08/05/19 17:08 Potassium 3.5 mmol/L (3.6-5.0) L 08/05/19 17:08 Chloride 109.3 mmol/L (98-107) H 08/05/19 17:08 Carbon Dioxide 21 mmol/L (22-30) L 08/05/19 17:08 Anion Gap 18 mmol/L 08/05/19 17:08 BUN 28 mg/dL (9-20) H 08/05/19 17:08 Creatinine 2.6 mg/dL (0.8-1.5) H 08/05/19 17:08 Estimated GFR 30 ml/min 08/05/19 17:08 BUN/Creatinine Ratio 11 % 08/05/19 17:08 Glucose 59 mg/dL (75-100) L 08/05/19 17:08 Calcium 7.9 mg/dL (8.4-10.2) L 08/05/19 17:08 Magnesium 1.90 mg/dL (1.7-2.3) 08/05/19 17:08 Total Creatine Kinase 547 units/L (55-170) H 08/03/19 14:47 CK-MB (CK-2) 11.0 ng/mL (0.0-4.0) H 08/03/19 14:47 CK-MB (CK-2) Rel Index 2.0 (0-4) 08/03/19 14:47 Troponin T 0.032 ng/mL (0.00-0.029) H 08/04/19 05:55 Triglycerides 115 mg/dL (2-149) 08/02/19 14:38 Cholesterol 129 mg/dL (50-199) 08/02/19 14:38 LDL Cholesterol Direct 74 mg/dL (50-130) 08/02/19 14:38 HDL Cholesterol 41 mg/dL (40-59) 08/02/19 14:38 Cholesterol/HDL Ratio 3.14 % 08/02/19 14:38 Urine Color Yellow (Yellow) 08/02/19 Unknown Urine Turbidity Clear (Clear) 08/02/19 Unknown Urine pH 5.0 (5.0-7.0) 08/02/19 Unknown Ur Specific [place] 1.014 (1.003-1.030) 08/02/19 Unknown Urine Protein 30 mg/dl mg/dL (Negative) 08/02/19 Unknown Urine Glucose (UA) Neg mg/dL (Negative) 08/02/19 Unknown Urine Ketones Neg mg/dL (Negative) 08/02/19 Unknown Urine Blood Sm (Negative) 08/02/19 Unknown Urine Nitrite Neg (Negative) 08/02/19 Unknown Urine Bilirubin Neg (Negative) 08/02/19 Unknown Urine Urobilinogen < 2.0 mg/dL (<2.0) 08/02/19 Unknown Ur Leukocyte Esterase Neg (Negative) 08/02/19 Unknown Urine WBC (Auto) 2.0 /HPF (0.0-6.0) 08/02/19 Unknown Urine RBC (Auto) 1.0 /HPF (0.0-6.0) 08/02/19 Unknown U Epithel Cells (Auto) < 1.0 /HPF (0-13.0) 08/02/19 Unknown Urine Bacteria (Auto) 1+ /HPF (Negative) 08/02/19 Unknown Urine Mucus Few /HPF 08/02/19 Unknown Active Medications - Current Medications Current Medications: Generic Name Dose Route Start Last Admin Trade Name [place] PRN Reason Stop Dose Admin Aspirin 81 mg 08/03/19 11:00 08/05/19 18:26 Halfprin Ec PO 81 mg DAILY STAS Administration Clonidine HCl 0.1 mg 08/03/19 14:00 08/05/19 22:29 Catapres PO 0.1 mg TID STAS Administration Cyanocobalamin 1,000 mcg 08/03/19 11:00 08/05/19 13:27 Vitamin B-12 PO 1,000 mcg DAILY STAS Administration Docusate Sodium 100 mg 08/03/19 10:00 08/05/19 22:12 Colace PO Not Given BID STAS Enoxaparin Sodium 30 mg 08/03/19 10:00 08/05/19 13:25 Enoxaparin SUB-Q 30 mg QDAY STAS Administration Ferrous Sulfate 325 mg 08/03/19 11:00 08/05/19 13:25 Feosol PO 325 mg DAILY STAS Administration Hydralazine HCl 5 mg 08/03/19 01:07 08/03/19 18:55 Apresoline IV 5 mg Q6H PRN Administration Hypertension Hydralazine HCl 25 mg 08/03/19 14:00 08/05/19 22:29 Apresoline PO 25 mg TID STAS Administration Dextrose/Sodium Chloride 1,000 mls @ 125 mls/hr 08/05/19 09:00 08/06/19 05:59 D5/0.45ns IV 125 mls/hr DIRECT STAS Administration Levetiracetam 750 mg 08/03/19 11:20 08/05/19 22:29 Keppra PO 750 mg BID STAS Administration Metoprolol Tartrate 50 mg 08/03/19 10:00 08/05/19 22:29 Metoprolol PO 50 mg BID STAS Administration Nifedipine 60 mg 08/03/19 10:00 08/05/19 22:29 Procardia Xl PO 60 mg BID STAS Administration Sertraline HCl 50 mg 08/03/19 22:00 08/05/19 22:29 Zoloft PO 50 mg QHS STAS Administration Tamsulosin HCl 0.4 mg 08/03/19 10:00 08/05/19 18:26 Flomax PO 0.4 mg QDAY STAS Administration
[2019-08-06] MEDS: cloNIDine 0.1 MG TAB PO SCH ×2 (08:43→15:02)
[2019-08-06] MEDS: hydrALAZINE 25 MG TAB PO SCH ×2 (08:44→15:02)
--- NOTE | 2019-08-06 10:07 | Progress Note ---
Assessment and Plan - Patient Problems (1) Acute kidney injury superimposed on chronic kidney disease Current Visit: Yes Status: Acute Plan to address problem: baseline creatinine 2.2 an 2018 creatinine on admission was 5 Creatinine improving currently 2.6 no volume overload on exam continue intravenous fluids avoid nephrotoxic medications Repeat labs today reasonable to discharge from renal perspective (2) Hypertension Current Visit: Yes Status: Chronic Plan to address problem: hypertension, controlled. Continue current medications (3) Acute hypernatremia Current Visit: Yes Status: Acute Plan to address problem: Acute hypERnatremia improving Continue hypotonic solutions Continue HALF-NORMAL SALINE TO 125 CC AN HOUR (4) Hypokalemia Current Visit: Yes Status: Acute Plan to address problem: HYPOKALEMIA improving Current potassium is 3.5 Subjective Principal diagnosis: AMS; elevated trop Interval history: 73-year-old gentleman with chronic kidney disease, hypertension admitted with acute kidney injury Seen today, nurse at bedside patient with improving renal function denies any lower extremity edema. Denies any shortness of breath Objective - Vital Signs Vital signs: Vital Signs - 12hr 08/06/19 08/06/19 08/06/19 00:21 04:41 06:00 Temperature 98.8 F 98.7 F Pulse Rate 54 L 58 L 54 L Pulse Rate [ Apical] Pulse Rate [ From Monitor] Respiratory 12 16 Rate Blood Pressure 133/66 145/75 O2 Sat by Pulse 97 98 Oximetry 08/06/19 08/06/19 08/06/19 07:21 08:43 08:44 Temperature 98.3 F Pulse Rate 55 L 76 76 Pulse Rate [ Apical] Pulse Rate [ From Monitor] Respiratory 18 Rate Blood Pressure 153/75 153/75 153/75 O2 Sat by Pulse 84 Oximetry 08/06/19 08:58 Temperature Pulse Rate Pulse Rate [ 68 Apical] Pulse Rate [ 76 From Monitor] Respiratory 20 Rate Blood Pressure O2 Sat by Pulse 98 Oximetry - General Appearance General appearance: well-developed, well-nourished EENT: ATNC, PERRL Neck: no JVD Respiratory: Present: Clear to Ascultation Cardiology: regular, S1S2 Gastrointestinal: normal, normoactive bowel sounds Integumentary: no rash Neurologic: alert and oriented x3, CN 3-12 intact Psychiatric: mood/affect appropriate - Lab 08/02/19 14:38 08/05/19 17:08 Most recent lab results Calcium 7.9 mg/dL (8.4-10.2) L 08/05/19 17:08 Magnesium 1.90 mg/dL (1.7-2.3) 08/05/19 17:08 - Imaging Chest x-ray: image reviewed (review chest x-ray which is clear) Medications & Allergies - Medications Allergies/Adverse Reactions: Allergies simvastatin Allergy (Verified 01/04/18 13:15) Unknown Home Medications: Home Medications Medication Instructions Recorded Confirmed Last Taken Type Aspirin EC [Halfprin EC] 1 tab PO DAILY 01/04/18 01/04/18 Unknown History AtorvaSTATin [Lipitor] 40 mg PO QHS 01/04/18 01/04/18 Unknown History Cyanocobalamin (Vitamin B-12) 1,000 mcg PO DAILY 01/04/18 01/04/18 Unknown History [Vitamin B-12] Docusate Sodium [Colace] 100 mg PO BID 01/04/18 01/04/18 Unknown History Ferrous Sulfate [Iron] 325 mg PO DAILY 01/04/18 01/04/18 Unknown History Metoprolol [Lopressor TAB] 50 mg PO BID 01/04/18 01/04/18 Unknown History NIFEdipine [Nifedipine ER] 60 mg PO BID 01/04/18 01/04/18 Unknown History Omeprazole 40 mg PO DAILY 01/04/18 01/04/18 Unknown History Sertraline [Zoloft] 50 mg PO QHS 01/04/18 01/04/18 Unknown History Tamsulosin [Flomax] 0.4 mg PO QDAY 01/04/18 01/04/18 Unknown History cloNIDine [Catapres] 0.1 mg PO TID #20 tablet 01/04/18 Unknown Rx hydrALAZINE [Apresoline] 25 mg PO TID 01/04/18 01/04/18 Unknown History levETIRAcetam 750 mg PO BID 01/04/18 01/04/18 Unknown History Active Medications: Generic Name Dose Route Start Last Admin Trade Name Freq PRN Reason Stop Dose Admin Aspirin 81 mg 08/03/19 11:00 08/05/19 18:26 Halfprin Ec PO 81 mg DAILY STAS Administration Clonidine HCl 0.1 mg 08/03/19 14:00 08/06/19 08:43 Catapres PO 0.1 mg TID STAS Administration Cyanocobalamin 1,000 mcg 08/03/19 11:00 08/05/19 13:27 Vitamin B-12 PO 1,000 mcg DAILY STAS Administration Docusate Sodium 100 mg 08/03/19 10:00 08/05/19 22:12 Colace PO Not Given BID STAS Enoxaparin Sodium 30 mg 08/03/19 10:00 08/05/19 13:25 Enoxaparin SUB-Q 30 mg QDAY STAS Administration Ferrous Sulfate 325 mg 08/03/19 11:00 08/05/19 13:25 Feosol PO 325 mg DAILY STAS Administration Hydralazine HCl 5 mg 08/03/19 01:07 08/03/19 18:55 Apresoline IV 5 mg Q6H PRN Administration Hypertension Hydralazine HCl 25 mg 08/03/19 14:00 08/06/19 08:44 Apresoline PO 25 mg TID STAS Administration Dextrose/Sodium Chloride 1,000 mls @ 125 mls/hr 08/05/19 09:00 08/06/19 08:45 D5/0.45ns IV 125 mls/hr DIRECT STAS Administration Levetiracetam 750 mg 08/03/19 11:20 08/05/19 22:29 Keppra PO 750 mg BID STAS Administration Metoprolol Tartrate 50 mg 08/03/19 10:00 08/05/19 22:29 Metoprolol PO 50 mg BID STAS Administration Nifedipine 60 mg 08/03/19 10:00 08/05/19 22:29 Procardia Xl PO 60 mg BID STAS Administration Sertraline HCl 50 mg 08/03/19 22:00 08/05/19 22:29 Zoloft PO 50 mg QHS STAS Administration Tamsulosin HCl 0.4 mg 08/03/19 10:00 08/05/19 18:26 Flomax PO 0.4 mg QDAY STAS Administration
[2019-08-06] MEDS: levETIRAcetam 500 MG TAB PO SCH (10:35)
[2019-08-06] MEDS: DOCUSATE SODIUM 100 MG CAP PO SCH (10:36)
[2019-08-06] MEDS: METOPROLOL TARTRATE 50 MG TAB PO SCH (10:36)
[2019-08-06] MEDS: ENOXAPARIN 30 MG/0.3 ML INJ SUB-Q SCH (10:36)
[2019-08-06] MEDS: CYANOCOBALAMIN (VIT B-12) 1000 MCG TAB PO SCH (10:36)
[2019-08-06] MEDS: TAMSULOSIN 0.4 MG CAP PO SCH (10:36)
[2019-08-06] MEDS: ASPIRIN EC 81 MG TAB PO SCH (10:36)
[2019-08-06] MEDS: FERROUS SULFATE 325 MG TAB PO SCH (10:36)
[2019-08-06] MEDS: NIFEdipine XL 60 MG TAB PO SCH (10:36)
[2019-08-06 11:32] LABS: Calcium 7.7 mg/dL (8.4-10.2)
[2019-08-06] MEDS ORDERED: POTASSIUM CHLORIDE ER 20 MEQ TAB PO ONE (12:11)
--- NOTE | 2019-08-06 14:03 | Discharge Summary ---
Providers - Providers Date of Admission: 08/02/19 22:00 Date of discharge: 08/06/19 Attending physician: RADHA DOWNING 08/03/19 01:07 Consult to Physician [CONS] Routine Comment: Consulting Provider: MIRA SHEIKH Physician Instructions: Reason For Exam: hypernatremia, rf 08/03/19 09:11 Physical Therapy Evaluation and Treat [CONS] Routine Comment: Reason For Exam: evaluate and treat Primary care physician: [facility] Hospitalization Condition: Fair Procedures: StressTest is negative Renal ultrasound CT head without contrast Chest x-ray Echocardiogram Hospital course: --NSTEMI: Probably type II Stress test negative for ischemia The current management --Acute versus acute on chronic kidney disease; Worsening renal function Nephrology following --Hypokalemia; replace with KCl Monitor electrolytes --Hypernatremia; D5W, plenty of oral fluids, closely monitor electrolytes --History of seizures; seizure precautions Antiseizure medications, supportive care --History of gout; Resume home medications --History of colon cancer; stable Patient follows up with his physicians upon discharge --DVT prophylaxis; on heparin Disposition: DC/TX-70 ANOTHER TYPE [facility]THC[facility] Time spent for discharge: 32 min Core Measure Documentation - Palliative Care Palliative Care/ Comfort Measures: Not Applicable - Core Measures Any of the following diagnoses?: none Exam - Constitutional Vitals: Temp Pulse Resp BP Pulse Ox 98.3 F 62 20 153/75 98 08/06/19 07:21 08/06/19 10:36 08/06/19 08:58 08/06/19 10:36 08/06/19 08:58 General appearance: Present: no acute distress, well-nourished - EENT Eyes: Present: PERRL, EOM intact - Neck Neck: Present: supple, normal ROM - Respiratory Respiratory effort: normal Respiratory: bilateral: diminished, negative: rales, rhonchi, wheezing - Cardiovascular Rhythm: regular Heart Sounds: Present: S1 & S2 - Extremities Extremities: no ischemia, No edema - Abdominal General gastrointestinal: Present: soft, non-tender, non-distended, normal bowel sounds - Integumentary Integumentary: Present: clear, warm - Musculoskeletal Musculoskeletal: strength equal bilaterally - Psychiatric Psychiatric: appropriate mood/affect, cooperative - Neurologic Neurologic: moves all extremities Plan Activity: advance as tolerated, fall precautions, other (seizure precautions) Diet: other (cardiac diet) Additional Instructions: Fall precautions. Seizure Precautions. No new Prescriptions. Advised to drink plenty of oral fluids Assessment: Admitted with acute on chronic kidney disease, renal function significantly improved back to baseline Patient also had chest pain evaluated by cardiology and underwent stress test which was negative for reversible ischemia The patient is comfortable no new complaints vital signs stable physical examination unremarkable Stable at discharge Follow up with: [facility] [Primary Care Provider] - 3-5 Days DELANEY MCHUGH MD [Staff Physician] - 14 Days MIRA SHEIKH MD [Staff Physician] - 7 Days
[2019-08-06 14:43] VITALS: BP 153/70
[2019-08-06] MEDS ORDERED: DIPHENOXYLATE/ATROPINE TAB PO ONE (15:00)
== END 2019-08-06 18:11 | disposition home or self-care (01) | DRG 682 ==
LOC: ED 13:06 → 4A 22:00
PROVIDERS: ADMIT Internal Medicine; ATTEND Internal Medicine
DX: N17.9 Acute kidney failure, unspecified (principal); I21.A1 Myocardial infarction type 2; E87.0 Hyperosmolality and hypernatremia; I69.351 Hemiplegia and hemiparesis following cerebral infarction affecting right dominant side; I12.9 Hypertensive chronic kidney disease with stage 1 through stage 4 chronic kidney disease, or unspecified chronic kidney disease; M10.9 Gout, unspecified; E87.6 Hypokalemia; N18.3 Chronic kidney disease, stage 3 (moderate); K21.9 Gastro-esophageal reflux disease without esophagitis; F03.90 Unspecified dementia, unspecified severity, without behavioral disturbance, psychotic disturbance, mood disturbance, and anxiety; H54.62 Unqualified visual loss, left eye, normal vision right eye; Z90.49 Acquired absence of other specified parts of digestive tract; Z85.038 Personal history of other malignant neoplasm of large intestine; Z79.82 Long term (current) use of aspirin; Z79.899 Other long term (current) drug therapy; Z82.49 Family history of ischemic heart disease and other diseases of the circulatory system; Z88.8 Allergy status to other drugs, medicaments and biological substances
CPT/HCPCS: 36415; 70450; 71045; 76770; 78452; 80048; 80061; 81001; 82550; 82553; 83735; 84484; 85025; 85610; 85730; 87040; 87116; 93005; 93010; 93017; 93306; G0378; A9502; J0360; J1650; J2543; J2785; J7030